=== PATIENT | male | born 1960 | race Caucasian/White ===

== ENCOUNTER → 2017-11-08 09:35 | Outpatient (CLI) | payer BC, SELFPAY ==
[2017-11-08 11:06] LABS: Alanine Aminotransferase 81 U/L (12-78); Albumin Level 3.6 gm/dL (3.4-5.0); Albumin/Globulin Ratio 1.1 (1.1-1.8); Alkaline Phosphatase 110 U/L (46-116); Anion Gap 11.5 mEq/L (5-15); Aspartate Amino Transferase 49 U/L (15-37); Bilirubin,Total 0.6 mg/dL (0.2-1.0); Blood Urea Nitrogen 18 mg/dL (7-18); Calcium 8.6 mg/dL (8.5-10.1); Carbon Dioxide 27 mmol/L (21.0-32.0); Chloride 105 mmol/L (98-107); Chol/HDL Ratio 2.7 (1-3.5); Cholesterol 149 mg/dL (140-200); Creatinine,Serum 1.23 mg/dL (0.70-1.30); Estimated Glomerular Filt Rate > 60 ml/min (>60); GFR (African American) > 60 ML/MIN (>60); Globulin 3.4 gm/dl (1.3-3.2); Glucose 113 mg/dL (74-106); HDL Cholesterol 56 mg/dL (27-67); LDL Cholesterol 74 mg/dL (0-130); Potassium 3.5 mmoL/L (3.5-5.1); Sodium 140 mmol/L (136-145); Triglycerides 93 mg/dL (30-200); VLDL Cholesterol 19 mg/dL (0-40)
== END ==
PROVIDERS: PCP Internal Medicine Adolescent Medicine; Visit Provider Internal Medicine Adolescent Medicine
DX: E78.5 Hyperlipidemia, unspecified (principal); I10 Essential (primary) hypertension
CPT/HCPCS: 36415; 80053; 80061

== ENCOUNTER → 2018-01-29 09:53 | Outpatient (CLI) | payer BC, SELFPAY ==
[2018-01-29 10:25] LABS: Alanine Aminotransferase 42 U/L (12-78); Albumin Level 3.5 gm/dL (3.4-5.0); Albumin/Globulin Ratio 0.9 (1.1-1.8); Alkaline Phosphatase 91 U/L (46-116); Anion Gap 8.6 mEq/L (5-15); Aspartate Amino Transferase 23 U/L (15-37); Bilirubin,Total 0.8 mg/dL (0.2-1.0); Blood Urea Nitrogen 17 mg/dL (7-18); Calcium 9.1 mg/dL (8.5-10.1); Carbon Dioxide 34 mmol/L (21.0-32.0); Chloride 101 mmol/L (98-107); Chol/HDL Ratio 3.3 (1-3.5); Cholesterol 171 mg/dL (140-200); Creatinine,Serum 1.08 mg/dL (0.70-1.30); Estimated Glomerular Filt Rate 71 ml/min (>60); GFR (African American) 86 ML/MIN (>60); Globulin 4.1 gm/dl (1.3-3.2); Glucose 117 mg/dL (74-106); HDL Cholesterol 52 mg/dL (27-67); LDL Cholesterol 84 mg/dL (0-130); Potassium 3.6 mmoL/L (3.5-5.1); Sodium 140 mmol/L (136-145); Total Protein,Serum 7.6 gm/dL (6.4-8.2); Triglycerides 176 mg/dL (30-200); VLDL Cholesterol 35 mg/dL (0-40)
== END ==
PROVIDERS: Visit Provider Internal Medicine Adolescent Medicine
DX: E78.5 Hyperlipidemia, unspecified (principal); I10 Essential (primary) hypertension
CPT/HCPCS: 36415; 80053; 80061

== ENCOUNTER 2018-08-02 11:57 | Observation (INO) ==
[2018-08-02 12:18] LABS: Basophils # 0.1 K/mm3 (0-0.2); Basophils % 0.5 % (0.1-2.0); Eosinophils # 0.1 K/mm3 (0.0-0.4); Hematocrit 42.1 % (42.0-52.0); Lymphocytes # 1.2 K/mm3 (0.7-4.5); Lymphocytes % 10.3 K/mm3 (10-50); Mean Corpuscular HGB Conc 33.2 g/dL (31.8-35.4); Mean Corpuscular Hemoglobin 29.5 pg (27.0-31.2); Mean Corpuscular Volume 88.6 fl (80-94); Mean Platelet Volume 7.1 fl (7.4-10.4); Monocytes # 0.7 K/mm3 (0.1-1.0); Monocytes % 5.7 % (1.7-9.3); Neutrophils # 9.6 K/mm3 (1.8-7.8); Neutrophils % 82.6 % (37.0-80.0); Platelet Count 589 K/mm3 (142-424); Red Blood Count 4.75 M/mm3 (4.60-6.20); Red Cell Distribution Width 12.1 % (11.5-17.5); White Blood Count 11.6 K/mm3 (4.8-10.8)
[2018-08-02 12:57] LABS: Alanine Aminotransferase 106 U/L (12-78); Albumin Level 2.6 gm/dL (3.4-5.0); Albumin/Globulin Ratio 0.5 (1.1-1.8); Alkaline Phosphatase 315 U/L (46-116); Anion Gap 14.5 mEq/L (5-15); Aspartate Amino Transferase 86 U/L (15-37); Blood Urea Nitrogen 18 mg/dL (7-18); Calcium 8.9 mg/dL (8.5-10.1); Carbon Dioxide 32 mmol/L (21.0-32.0); Chloride 92 mmol/L (98-107); Globulin 5.5 gm/dl (1.3-3.2); Glucose 138 mg/dL (74-106); Sodium 136 mmol/L (136-145); Total Protein,Serum 8.1 gm/dL (6.4-8.2)
[2018-08-02 13:16] LABS: Potassium 2.5 mmoL/L (3.5-5.1)
--- NOTE | 2018-08-02 14:45 | History & Physical Report ---
*Admission Date: 08/02/18 *Chief complaint: vomiting, weakness *History of present illness: 57 year old male with a history of APRIL, hyperlipidemia and HTN presented to PCP office with a two week history of vomiting and weakness. Patient reports at onset of illness he had profuse vomiting x 24 hours. States symptoms improved for a couple days, then he became weak and nauseated again. He went to the ED on 07/26 and treated for hypokalemia and gastroenteritis. Review of ED records reviewed transaminitis (AST 93, ALT 202, Total Bili 2.5), dehydration with BUN/creatinine 20/1.5, hypokalemia at 2.5 and leukocytosis with WBC 16.9. CT abdomen/pelvis showed distended gallbladder and a 12 mm nonspecific isodensity in the hepatic dome. Today, in PCP office he reports persistent nausea with occasional vomiting, weakness and dizziness. No diarrhea. No abdominal pain. Subjective temps have resolved. No cough, cold or congestion. Repeat labs showed persistent hypokalemia at 2.5, creatinine 1.51 and improving transaminitis (AST 86, ALT 106, Total Bili 2). Patient has history of ETOH abuse, although reports only social use at this time. No h/o IV drug use. Gallbladder/liver ultrasound was obtained. Patient was admitted for potassium replacement, IV hydration and further evaluation. [facility] History I have reviewed the patient's past medical history: Yes Medical History: Reports:: Anxiety, Hyperlipidemia, Hypertension - *Social History Alcohol Intake: current Alcohol Intake Frequency:: holidays/special occasions only Review of Systems - Review of Systems Review of systems:: pertinent systems reviewed and negative unless documented below - Constitutional Reports fatigue, Reports malaise, Reports weakness - *Gastrointestinal Reports nausea, Reports vomiting Meds Allergies Allergy/AdvReac Type Severity Reaction Status Date / Time No Known Allergies Allergy Verified 07/26/18 20:19 Exam Vital signs and Labs for Last 24 Hours: Laboratory Results - last 24 hr 08/02/18 12:01: APTT 26.9 08/02/18 12:01: Sodium 136, Potassium 2.5 L*, Chloride 92 L, Carbon Dioxide 32, Anion Gap 14.5, BUN 18, Creatinine 1.51 H, Estimated GFR 48 L, Est GFR ( Amer) 58 L, Glucose 138 H, Calcium 8.9, Total Bilirubin 2.0 H, AST 86 H, ALT 106 H, Alkaline Phosphatase 315 H, Total Protein 8.1, Albumin 2.6 L, Globulin 5.5 H, Albumin/Globulin Ratio 0.5 L 08/02/18 12:01: WBC 11.6 H, RBC 4.75, Hgb 14.0 L, Hct 42.1, MCV 88.6, MCH 29.5, MCHC 33.2, RDW 12.1, Plt Count 589 H, MPV 7.1 L, Neut % (Auto) 82.6 H, Lymph % (Auto) 10.3, [place] % (Auto) 5.7, Eos % (Auto) 1.0, Baso % (Auto) 0.5, Neut # (Auto) 9.6 H, Lymph # (Auto) 1.2, [place] # (Auto) 0.7, Eos # (Auto) 0.1, Baso # (Auto) 0.1 Narrative: Alert and oriented x3. Rate and rhythm regular. Sclera icterus. Mild jaundice of skin, warm, dry. Lung sounds clear and equal. Abdomen protuberant but soft, normoactive bowel sounds. No LE edema. Neuro exam unremarkable. ENT unremarkable. Assessment and Plan (1) Transaminitis Current visit: Yes Status: Acute Category: Medical Code(s): R74.0 - Nonspecific elevation of levels of transaminase and lactic acid dehydrogenase [LDH] (2) Nausea and vomiting Current visit: Yes Status: Acute Category: Medical Code(s): R11.2 - Nausea with vomiting, unspecified (3) Dehydration Current visit: Yes Status: Acute Category: Medical Code(s): E86.0 - Dehydration (4) Hypokalemia Current visit: No Status: Acute Category: Medical Code(s): E87.6 - Hypokalemia (5) Hepatic lesion Current visit: Yes Status: Acute Category: Medical Code(s): K76.9 - Liver disease, unspecified - Assessment and plan all Dx Assessment and Plan for all problems:: Most likely related to recent viral illness. GB US pending. Denies high risk behaviors. Hepatitis panel is pending. IV and oral potassium replacement. IVF's for hydration. Clear liquid diet. Will treat nausea and repeat labs in the am.
[2018-08-03 06:41] LABS: Basophils # 0.1 K/mm3 (0-0.2); Basophils % 0.5 % (0.1-2.0); Eosinophils % 0.5 % (0.1-12.0); Hematocrit 32.7 % (42.0-52.0); Lymphocytes % 11.1 K/mm3 (10-50); Mean Corpuscular HGB Conc 32.8 g/dL (31.8-35.4); Mean Corpuscular Hemoglobin 29.1 pg (27.0-31.2); Mean Corpuscular Volume 88.6 fl (80-94); Monocytes # 0.6 K/mm3 (0.1-1.0); Monocytes % 7.2 % (1.7-9.3); Neutrophils # 7.3 K/mm3 (1.8-7.8); Neutrophils % 80.7 % (37.0-80.0); Platelet Count 517 K/mm3 (142-424); Red Blood Count 3.69 M/mm3 (4.60-6.20); Red Cell Distribution Width 12.2 % (11.5-17.5)
[2018-08-03 06:56] LABS: Albumin Level 1.8 gm/dL (3.4-5.0); Albumin/Globulin Ratio 0.4 (1.1-1.8); Anion Gap 7.3 mEq/L (5-15); Bilirubin,Total 1.3 mg/dL (0.2-1.0); Calcium 8.1 mg/dL (8.5-10.1); Total Protein,Serum 6.8 gm/dL (6.4-8.2)
[2018-08-03 07:06] LABS: Potassium 2.3 mmoL/L (3.5-5.1)
[2018-08-03 07:07] LABS: Hemoglobin 10.8 g/dL (14.1-18.0)
--- NOTE | 2018-08-03 07:31 | Pharmacy Consult Notes ---
[facility] Pharmacy VTE Monitoring - Patient Demographics Admission date: 08/03/18 Report Date: 08/03/18 Time: 07:30 Allergies/Adverse Reactions: Patient Allergies No Known Allergies Allergy (Verified 07/26/18 20:19) Height: 1.78 m Weight: 106.254 kg Patient Problems: Current Active Problems Transaminitis (Acute) Nausea and vomiting (Acute) Dehydration (Acute) Hepatic lesion (Acute) - VTE Risk Labs: VTE Related Lab Results Hgb 10.8 g/dL (14.1-18.0) L D 08/03/18 06:18 Hct 32.7 % (42.0-52.0) L 08/03/18 06:18 Plt Count 517 K/mm3 (142-424) H 08/03/18 06:18 APTT 26.9 seconds (23.6-34.0) 08/02/18 12:01 BUN 14 mg/dL (7-18) 08/03/18 06:18 Creatinine 1.38 mg/dL (0.70-1.30) H 08/03/18 06:18 Estimated Creat Clear 91 mL/min (0-300) 08/03/18 06:18 Clinical Trial Participant: No - Prophylaxis VTE Prophylaxis Ordered?: Yes Types of VTE Prophylaxis: TEDS Knee High Location of Applied Device: Bilateral Lower Extremeties
[2018-08-03 08:27] LABS: Hepatitis B Core Antibody IgM Negative (Negative); Hepatitis B Surface Antigen Negative (Negative)
--- NOTE | 2018-08-03 08:57 | Progress Note ---
Internal Medicine - PN: Subj *Date: 08/03/18 *Time: 08:15 Interval history: Patient rested well overnight. Remained hemodynamically stable. Complains of continued weakness however no longer having abdominal pain. Denies any nausea. Had one bowel movement that was soft this morning. Tolerating p.o. intake. Potassium remains low on labs this morning. Denies any fever, chills, bleeding, chest pain,'s of breath. Exam Vital signs and Labs for Last 24 Hours: Temp Pulse Resp BP Pulse Ox 98.8 F 64 18 131/61 95 08/03/18 08:00 08/03/18 08:00 08/03/18 08:00 08/03/18 08:00 08/03/18 08:00 Laboratory Results - last 24 hr 08/02/18 12:01: APTT 26.9 08/02/18 12:01: Sodium 136, Potassium 2.5 L*, Chloride 92 L, Carbon Dioxide 32, Anion Gap 14.5, BUN 18, Creatinine 1.51 H, Estimated GFR 48 L, Est GFR ( Amer) 58 L, Glucose 138 H, Calcium 8.9, Total Bilirubin 2.0 H, AST 86 H, ALT 106 H, Alkaline Phosphatase 315 H, Total Protein 8.1, Albumin 2.6 L, Globulin 5.5 H, Albumin/Globulin Ratio 0.5 L 08/02/18 12:01: WBC 11.6 H, RBC 4.75, Hgb 14.0 L, Hct 42.1, MCV 88.6, MCH 29.5, MCHC 33.2, RDW 12.1, Plt Count 589 H, MPV 7.1 L, Neut % (Auto) 82.6 H, Lymph % (Auto) 10.3, [place] % (Auto) 5.7, Eos % (Auto) 1.0, Baso % (Auto) 0.5, Neut # (Auto) 9.6 H, Lymph # (Auto) 1.2, [place] # (Auto) 0.7, Eos # (Auto) 0.1, Baso # (Auto) 0.1 08/03/18 06:18: WBC 9.0, RBC 3.69 L, Hgb 10.8 L D, Hct 32.7 L, MCV 88.6, MCH 29.1, MCHC 32.8, RDW 12.2, Plt Count 517 H, MPV 7.0 L, Neut % (Auto) 80.7 H, Lymph % (Auto) 11.1, [place] % (Auto) 7.2, Eos % (Auto) 0.5, Baso % (Auto) 0.5, Neut # (Auto) 7.3, Lymph # (Auto) 1.0, [place] # (Auto) 0.6, Eos # (Auto) 0.0, Baso # (Auto) 0.1 08/03/18 06:18: Sodium 135 L, Potassium 2.3 L*, Chloride 98, Carbon Dioxide 32, Anion Gap 7.3, BUN 14, Creatinine 1.38 H, Estimated Creat Clear 91, Estimated GFR 53 L, Est GFR ( Amer) 65, Glucose 147 H, Calcium 8.1 L, Total Bilirubin 1.3 H, AST 51 H D, ALT 70 D, Alkaline Phosphatase 214 H, Total Protein 6.8, Albumin 1.8 L D, Globulin 5.0 H, Albumin/Globulin Ratio 0.4 L 08/03/18 06:18: Magnesium 1.7 I & O for Last 24 hours: Intake & Output 07/31/18 08/01/18 08/02/18 08/03/18 23:59 23:59 23:59 23:59 Intake Total 440 / 440 600 / 600 Balance 440 / 440 600 / 600 Weight 106.254 kg 106.254 kg - *Routine HEENT Exam Head: Present: normocephalic, atraumatic Eye: Present: EOMI, PERRL ENT: Present: mucous membranes moist - *Routine Neck Exam Present: supple, full ROM. Absent: JVD - *Routine Respiratory Exam Present: CTA bilaterally. Absent: prolonged expiratory phase, rales, wheezes - *Routine Cardiovascular Exam Present: RRR, Normal S1, Normal S2. Absent: murmur - *Routine Abdominal Exam Present: soft Comments: Hyperactive bowel sounds, nontender in right or left upper quadrant - *Routine Rectal Exam Patient deferred: visual exam - *Routine Exam Patient deferred: penile exam - *Routine Extremities Exam Absent: cyanosis, clubbing, edema - *Routine Skin Exam Present: intact. Absent: cyanosis, erythema, lesions - *Routine Neurological Exam Present: alert, oriented X3, CN II-XII intact Assessment and Plan (1) Transaminitis Current visit: Yes Status: Acute Category: Medical Code(s): R74.0 - Nonspecific elevation of levels of transaminase and lactic acid dehydrogenase [LDH] (2) Nausea and vomiting Current visit: Yes Status: Acute Category: Medical Code(s): R11.2 - Nausea with vomiting, unspecified (3) Dehydration Current visit: Yes Status: Acute Category: Medical Code(s): E86.0 - Dehydration (4) Hypokalemia Current visit: No Status: Acute Category: Medical Code(s): E87.6 - Hypokalemia (5) Hepatic lesion Current visit: Yes Status: Acute Category: Medical Code(s): K76.9 - Liver disease, unspecified (6) Hypomagnesemia Current visit: Yes Status: Acute Category: Medical Code(s): E83.42 - Hypomagnesemia - Assessment and plan all Dx Assessment and Plan for all problems:: No clear etiology for patient's hepatitis/transaminitis. Differential diagnosis includes viral etiology, obstruction due to gallstone, alcohol induced, drug- induced, or secondary to gastroenteritis and dehydration. At this time enzymes appear to be improving. Patient tolerating small amounts of oral intake. Remains significantly hypokalemic. Replacing both IV and oral today along with magnesium. Hepatitis from this admission still pending. Discharge criteria: Normalizing electrolytes, tolerating oral intake, no more vo miting or diarrhea. Currently continues to require inpatient medical management, reevaluate this afternoon with labs to assess for resolution and possible discharge later today
[2018-08-03 12:38] LABS: Hepatitis C Antibody <0.1 s/co ratio (0.0-0.9)
[2018-08-03 15:19] LABS: Anion Gap 6.7 mEq/L (5-15); Calcium 8.3 mg/dL (8.5-10.1)
[2018-08-03 15:25] LABS: Potassium 2.7 mmoL/L (3.5-5.1)
--- NOTE | 2018-08-03 15:32 | Discharge Summary ---
General - General Admission date:: 08/02/18 Discharge date: 08/04/18 HPI HPI: 57 year old male with a history of APRIL, hyperlipidemia and HTN presented to PCP office with a two week history of vomiting and weakness. Patient reports at onset of illness he had profuse vomiting x 24 hours. States symptoms improved for a couple days, then he became weak and nauseated again. He went to the ED on 07/26 and treated for hypokalemia and gastroenteritis. Review of ED records reviewed transaminitis (AST 93, ALT 202, Total Bili 2.5), dehydration with BUN/creatinine 20/1.5, hypokalemia at 2.5 and leukocytosis with WBC 16.9. CT abdomen/pelvis showed distended gallbladder and a 12 mm nonspecific isodensity in the hepatic dome. Today, in PCP office he reports persistent nausea with occasional vomiting, weakness and dizziness. No diarrhea. No abdominal pain. Subjective temps have resolved. No cough, cold or congestion. Repeat labs showed persistent hypokalemia at 2.5, creatinine 1.51 and improving transaminitis (AST 86, ALT 106, Total Bili 2). Patient has history of ETOH abuse, although reports only social use at this time. No h/o IV drug use. Gallbladder/liver ultrasound was obtained. Patient was admitted for potassium replacement, IV hydration and further evaluation. Hospital Course Hospital Course: Patient was admitted because of dehydration, hypokalemia, acute kidney injury, and transaminitis. With aggressive fluid and potassium repletion as well as treatment of nausea and vomiting, patient's labs improved. Able to tolerate p.o. intake with normalization of labs by day of discharge. Patient remained hemodynamically stable, afebrile, during course of admission. Medically stable for discharge home. Instructed to follow-up within a week with his primary care for reassessment and repeat lab work. Objective Vital signs: Temp Pulse Resp BP Pulse Ox 98.8 F 64 18 131/61 95 08/03/18 08:00 08/03/18 08:00 08/03/18 08:00 08/03/18 08:00 08/03/18 08:00 - *Routine HEENT Exam Head: Present: normocephalic, atraumatic Eye: Present: EOMI, PERRL ENT: Present: mucous membranes moist - *Routine Neck Exam Present: supple, full ROM - *Routine Respiratory Exam Present: CTA bilaterally. Absent: wheezes, crackles - *Routine Cardiovascular Exam Present: RRR, Normal S1, Normal S2. Absent: murmur - *Routine Abdominal Exam Present: soft, normoactive bowel sounds. Absent: tenderness - *Routine Rectal Exam Patient deferred: visual exam - *Routine Exam Patient deferred: penile exam - *Routine Extremities Exam Absent: cyanosis, clubbing, edema - *Routine Skin Exam Present: intact. Absent: cyanosis, erythema - *Routine Neurological Exam Present: alert, oriented X3, CN II-XII intact. Absent: altered mental status Results Labs on day of discharge: Labs from last 24 hours 08/03/18 08/03/18 08/03/18 14:50 06:18 06:18 WBC RBC Hgb Hct MCV MCH MCHC RDW Plt Count MPV Neut % (Auto) Lymph % (Auto) [place] % (Auto) Eos % (Auto) Baso % (Auto) Neut # (Auto) Lymph # (Auto) [place] # (Auto) Eos # (Auto) Baso # (Auto) Sodium 138 135 L Potassium 2.7 L* 2.3 L* Chloride 100 98 Carbon Dioxide 34 H 32 Anion Gap 6.7 7.3 BUN 12 14 Creatinine 1.14 1.38 H Estimated Creat Clear 110 91 Estimated GFR 67 53 L Est GFR ( Amer) 81 D 65 Glucose 108 H D 147 H Calcium 8.3 L 8.1 L Magnesium 2.2 D 1.7 Total Bilirubin 1.3 H AST 51 H D ALT 70 D Alkaline Phosphatase 214 H Total Protein 6.8 Albumin 1.8 L D Globulin 5.0 H Albumin/Globulin Ratio 0.4 L Hepatitis A IgM Ab Hep Bs Antigen Hep B Core IgM Ab Hepatitis C Antibody 08/03/18 08/02/18 06:18 12:01 WBC 9.0 RBC 3.69 L Hgb 10.8 L D Hct 32.7 L MCV 88.6 MCH 29.1 MCHC 32.8 RDW 12.2 Plt Count 517 H MPV 7.0 L Neut % (Auto) 80.7 H Lymph % (Auto) 11.1 [place] % (Auto) 7.2 Eos % (Auto) 0.5 Baso % (Auto) 0.5 Neut # (Auto) 7.3 Lymph # (Auto) 1.0 [place] # (Auto) 0.6 Eos # (Auto) 0.0 Baso # (Auto) 0.1 Sodium Potassium Chloride Carbon Dioxide Anion Gap BUN Creatinine Estimated Creat Clear Estimated GFR Est GFR ( Amer) Glucose Calcium Magnesium Total Bilirubin AST ALT Alkaline Phosphatase Total Protein Albumin Globulin Albumin/Globulin Ratio Hepatitis A IgM Ab Negative Hep Bs Antigen Negative Hep B Core IgM Ab Negative Hepatitis C Antibody <0.1 DS: Diagnosis - Discharge Diagnosis (1) Transaminitis Status: Resolved (2) Nausea and vomiting Status: Resolved (3) Dehydration Status: Resolved (4) Hypokalemia Status: Resolved (5) Hepatic lesion Status: Chronic (6) Hypomagnesemia Status: Resolved Discharge Plan - Patient Discharge Instructions ACTIVITY: Continue current activity DIET: continue same diet Patient Instructions: DI for Hypokalemia, High-Potassium Diet - Follow up Plan Follow up with: Rhys Mireles MD [Primary Care Provider] - Disposition: Home, Self-[facility] Medications: Home Medications Medication Instructions Recorded Confirmed Type RX: Atorvastatin Calcium 40 mg PO DAILY 08/02/18 08/02/18 History [Atorvastatin 40mg Tab] RX: Citalopram Hydrobromide 20 mg PO DAILY 08/02/18 08/02/18 History [Citalopram HBr] RX: Lisinopril [Lisinopril 10mg 10 mg PO DAILY 08/02/18 08/02/18 History Tab] RX: hydroCHLOROthiazide [HCTZ 25mg 25 mg PO DAILY 08/02/18 08/02/18 History tab] Prescriptions/Medication Reconciliation: Continue RX: Lisinopril [Lisinopril 10mg Tab] 10 mg PO DAILY RX: hydroCHLOROthiazide [HCTZ 25mg tab] 25 mg PO DAILY RX: Atorvastatin Calcium [Atorvastatin 40mg Tab] 40 mg PO DAILY RX: Citalopram Hydrobromide [Citalopram HBr] 20 mg PO DAILY
[2018-08-03 16:01] LABS: INR 1.01 (0.9-1.1); Prothrombin Time 10.4 seconds (9.4-11.8)
[2018-08-04 07:11] LABS: Albumin Level 1.7 gm/dL (3.4-5.0); Albumin/Globulin Ratio 0.4 (1.1-1.8); Anion Gap 7.4 mEq/L (5-15); Bilirubin,Total 0.7 mg/dL (0.2-1.0); Globulin 4.7 gm/dl (1.3-3.2); Phosphorous 2.4 mg/dL (2.4-4.9); Potassium 3.4 mmoL/L (3.5-5.1); Total Protein,Serum 6.4 gm/dL (6.4-8.2)
== END 2018-08-04 13:18 | disposition home or self-care (01) ==
LOC: 2ND 11:57 → LAB 11:57
PROVIDERS: ADMIT Internal Medicine Adolescent Medicine; ATTEND Internal Medicine Adolescent Medicine
CPT/HCPCS: 36415; 76705; 80048; 80053; 80074; 83735; 84100; 85025; 85610; 85730; G0378

== ENCOUNTER → 2019-01-15 09:43 | Outpatient (CLI) | payer BC, SELFPAY ==
--- NOTE | 2019-01-15 09:50 | US_ITS ---
US abdomen limited History:Right upper quadrant pain with nausea and vomiting Ordering Physician:Compa Christianson MD Patient Age: 58 years Comparison:None Findings: Pancreas:Poorly demonstrated due to body habitus and overlying gas. Liver:Also poorly demonstrated due to overlying gas and patient body habitus. No focal liver lesions demonstrated however, small lesions may not be detected with this technique. No intrahepatic biliary ductal dilatation. Right Kidney:Unremarkable. Normal size and echogenicity. No hydronephrosis Gallbladder:The gallbladder is distended. Common bile duct is normal at 4 mm. No shadowing stones or pericholecystic fluid evident. IMPRESSION: Distended gallbladder. No obvious shadowing stones. Limited exam with limited evaluation of the pancreas and liver due to body habitus and overlying bowel gas. CT may provide further evaluation of liver and pancreas if clinically desired
[2019-01-15 12:56] LABS: Basophils % 0.2 % (0.1-2.0); Eosinophils % 0.2 % (0.1-12.0); Hematocrit 45.4 % (42.0-52.0); Hemoglobin 14.9 g/dL (14.1-18.0); Lymphocytes # 0.5 K/mm3 (0.7-4.5); Lymphocytes % 3.8 % (10-50); Mean Corpuscular HGB Conc 32.9 g/dL (31.8-35.4); Mean Corpuscular Hemoglobin 30.2 pg (27.0-31.2); Mean Corpuscular Volume 91.8 fl (80-94); Mean Platelet Volume 7.7 fl (7.4-10.4); Monocytes # 0.6 K/mm3 (0.1-1.0); Monocytes % 4.9 % (1.7-9.3); Neutrophils # 11.8 K/mm3 (1.8-7.8); Neutrophils % 90.9 % (37.0-80.0); Platelet Count 244 K/mm3 (142-424); Red Blood Count 4.94 M/mm3 (4.60-6.20); Red Cell Distribution Width 14.1 % (11.5-17.5); White Blood Count 12.9 K/mm3 (4.8-10.8)
[2019-01-15 13:02] LABS: MANUAL DIFFERENTIAL MANUAL DIFFERENTIAL (MANUAL DIFF)
[2019-01-15 14:10] LABS: Lymphocytes % 4 % (10-50); Monocytes % 4 % (2-9); Neutrophils % 92 % (42-76); Platelet Estimate Normal; RBC Morphology Normal; Total Cells Counted 100
[2019-01-15 20:28] LABS: Alanine Aminotransferase 409 U/L (12-78); Albumin Level 3.4 gm/dL (3.4-5.0); Albumin/Globulin Ratio 0.9 (1.1-1.8); Alkaline Phosphatase 663 U/L (46-116); Anion Gap 18.2 mEq/L (5-15); Blood Urea Nitrogen 13 mg/dL (7-18); Calcium 9.4 mg/dL (8.5-10.1); Carbon Dioxide 25 mmol/L (21.0-32.0); Chloride 101 mmol/L (98-107); Creatinine,Serum 1.02 mg/dL (0.70-1.30); Estimated Glomerular Filt Rate 76 ml/min (>60); GFR (African American) 91 ML/MIN (>60); Globulin 3.6 gm/dl (1.3-3.2); Glucose 142 mg/dL (74-106); Sodium 140 mmol/L (136-145)
[2019-01-15 20:31] LABS: Potassium 4.2 mmoL/L (3.5-5.1)
[2019-01-15 20:32] LABS: Aspartate Amino Transferase 233 U/L (15-37)
== END ==
PROVIDERS: PCP Internal Medicine Adolescent Medicine; Visit Provider Internal Medicine Adolescent Medicine
DX: R10.11 Right upper quadrant pain (principal); R11.2 Nausea with vomiting, unspecified
CPT/HCPCS: 36415; 76705; 80053; 85007; 85025

== ENCOUNTER 2019-01-16 07:45 | Inpatient (IN) ==
[2019-01-16 09:50] LABS: Basophils % 0.4 % (0.1-2.0); Eosinophils # 0.1 K/mm3 (0.0-0.4); Eosinophils % 2.2 % (0.1-12.0); Hematocrit 45.6 % (42.0-52.0); Hemoglobin 15.1 g/dL (14.1-18.0); Lymphocytes # 0.9 K/mm3 (0.7-4.5); Lymphocytes % 14.1 % (10-50); Mean Corpuscular HGB Conc 33.2 g/dL (31.8-35.4); Mean Corpuscular Hemoglobin 30.7 pg (27.0-31.2); Mean Corpuscular Volume 92.4 fl (80-94); Mean Platelet Volume 7.1 fl (7.4-10.4); Monocytes # 0.4 K/mm3 (0.1-1.0); Monocytes % 6.5 % (1.7-9.3); Neutrophils # 4.9 K/mm3 (1.8-7.8); Neutrophils % 76.6 % (37.0-80.0); Platelet Count 266 K/mm3 (142-424); Red Blood Count 4.93 M/mm3 (4.60-6.20); Red Cell Distribution Width 14.2 % (11.5-17.5); White Blood Count 6.4 K/mm3 (4.8-10.8)
--- NOTE | 2019-01-16 10:19 | Pharmacy Consult Notes ---
[facility] Pharmacy VTE Monitoring - Patient Demographics Admission date: 01/16/19 Report Date: 01/16/19 Time: 10:18 Allergies/Adverse Reactions: Patient Allergies No Known Allergies Allergy (Verified 07/26/18 20:19) Height: 1.78 m Weight: 104.44 kg - VTE Risk Labs: VTE Related Lab Results Hgb 15.1 g/dL (14.1-18.0) 01/16/19 09:40 Hct 45.6 % (42.0-52.0) 01/16/19 09:40 Plt Count 266 K/mm3 (142-424) 01/16/19 09:40 Was VTE Risk Assessment Performed: Yes VTE Score: 2 VTE Risk Level: Low Risk Clinical Trial Participant: No - Prophylaxis VTE Prophylaxis Ordered?: Yes Types of VTE Prophylaxis: TEDS Knee High
[2019-01-16 10:23] LABS: Albumin Level 3.1 gm/dL (3.4-5.0); Albumin/Globulin Ratio 0.7 (1.1-1.8); Anion Gap 13.1 mEq/L (5-15); Bilirubin,Total 11.8 mg/dL (0.2-1.0); Calcium 9.2 mg/dL (8.5-10.1); Globulin 4.4 gm/dl (1.3-3.2); Potassium 3.1 mmoL/L (3.5-5.1); Total Protein,Serum 7.5 gm/dL (6.4-8.2)
--- NOTE | 2019-01-16 10:55 | History & Physical Report ---
*Admission Date: 01/16/19 *Chief complaint: Right upper quadrant pain/jaundice/hyperbilirubinemia *History of present illness: 58-year-old white male with history of hypertension and hyperlipidemia who had significant right upper quadrant pain yesterday with associated nausea, vomiting and diaphoresis. Was evaluated in the office, noted to have positive right upper quadrant tenderness on exam, ultrasonography was ordered which showed gallbladder distention with questionable thickened wall, and labs were ordered which returned at this morning showing bilirubin of 12 with elevated transaminases. It was decided to admit to hospital for observation, CT scan of abdomen and pelvis, repeat labs and surgical consultation. [facility] History I have reviewed the patient's past medical history: Yes Medical History: Reports:: Anxiety, Hyperlipidemia, Hypertension Denies:: Cancer, Diabetes Mellitus Type 1, Diabetes Mellitus Type 2, MRSA *Have you ever received a pneumonia vaccine?: No *Have you received a flu vaccine this season?: No Laterality Cases: Bilateral: Tonsillectomy Amputation: No Fractures: No - *Social History Educational Level: Completed High School Smoking Status: Never smoker Alcohol Intake: never Alcohol Intake Frequency:: a few times a month *Occupational Status:: employed Housing: house Household Members: spouse *Travel in the last 8 weeks: None - Psychiatric History Expresses thoughts of harming self/others: None Suicide Plan Description: No Plan Pschychiatric History:: Reports:: Anxiety Family Hx:: No significant family history Review of Systems - Review of Systems Review of systems:: pertinent systems reviewed and negative unless documented below - Constitutional Denies anorexia, Denies body ache(s), Denies fever(s) - Eyes Denies blind spots, Denies blurry vision, Denies change in vision - ENT Denies abnormal hearing, Denies bleeding gums - *Cardiovascular Denies chest pain, Denies chest pain at rest - *Respiratory Denies change in phlegm color, Denies chest congestion, Denies cough - *Gastrointestinal Reports abdominal pain, Reports cramping, Denies belching, Denies bloating, Denies coffee ground vomit, Denies loose stools, Denies black, tarry stools - *Genitourinary Denies difficulty urinating - *Musculoskeletal Denies abnormal walking, Denies joint pain, Denies decreased muscle mass - Endocrine Denies cold intolerance, Denies excessive sweating Meds Home Medications Medication Instructions Recorded Confirmed Type Citalopram Hydrobromide 20 mg PO DAILY 08/02/18 01/16/19 History [Citalopram HBr] Atorvastatin Calcium [Lipitor 40mg 40 mg PO HS 01/16/19 01/16/19 History Tablet] Bisoprolol Fumarate [Bisoprolol 10 mg PO DAILY 01/16/19 01/16/19 History 10mg Tablet] Allergies Allergy/AdvReac Type Severity Reaction Status Date / Time No Known Allergies Allergy Verified 07/26/18 20:19 Exam Vital signs and Labs for Last 24 Hours: Temp Pulse Resp BP Pulse Ox 97.4 F L 63 18 147/83 H 97 01/16/19 09:21 01/16/19 09:21 01/16/19 09:21 01/16/19 09:21 01/16/19 09:21 Laboratory Results - last 24 hr 01/16/19 09:40: WBC 6.4 D, RBC 4.93, Hgb 15.1, Hct 45.6, MCV 92.4, MCH 30.7, MCHC 33.2, RDW 14.2, Plt Count 266, MPV 7.1 L, Neut % (Auto) 76.6, Lymph % (Auto) 14.1, [place] % (Auto) 6.5, Eos % (Auto) 2.2, Baso % (Auto) 0.4, Neut # (Auto) 4.9, Lymph # (Auto) 0.9, [place] # (Auto) 0.4, Eos # (Auto) 0.1, Baso # (Auto) 0.0 I & O for Last 24 hours: Intake & Output 01/13/19 01/14/19 01/15/19 01/16/19 11:59 11:59 11:59 11:59 Weight 230 lb 4 oz Narrative: Patient is alert, oriented, minimally jaundiced with mild scleral icterus. Lungs are clear, heart rate regular. Abdomen is soft, does have tenderness in the right upper quadrant but equivocal Harrell sign. No rebound or guarding. No stigmata of liver disease. No edema, clubbing or cyanosis. Neurologic exam intact. Assessment and Plan (1) Elevated LFTs Current visit: No Status: Acute Category: Medical Code(s): R94.5 - Abnormal results of liver function studies Possible obstructive disease versus inflammatory gallbladder disease. Check CT scan. Repeated labs ordered. Surgical intervention versus ERCP?
--- NOTE | 2019-01-16 17:09 | Operative Note ---
Date of procedure: 01/16/19 Pre-op Diagnosis:: Biliary pancreatitis Post-op Diagnosis:: Same Procedure performed:: Laparoscopic cholecystectomy with intraoperative cholangiogram Surgeon:: Enrique He MD CIGAR HEAD HOLER:: Jairon Laguerre Anesthesia: GETA Estimated blood loss (mL): 30 Clinical Note:: Patient is a healthy 58-year-old white male. He presented with acute abdominal pain. He was found to have evidence of pancreatitis by imaging and laboratory studies. He was admitted for inpatient management and surgical consultation. Patient underwent gallbladder ultrasound which revealed gallstones. He was managed medically for his pancreatitis and had some improvement in his symptoms. Laboratory studies slowly improved. Plan was made for early interval cholecystectomy to limited source of pancreatitis since his pancreatitis was improving. Operative findings:: He had a thickened inflamed gallbladder. There was significant inflammatory response around the afshan hepatus and fibrosis. There was concern for possible stone in the cystic duct based on operative findings by cholangiogram did not reveal any stone or filling defect. He did have a incidental hernia at the umbilical area noted intraoperatively as the gallbladder was being removed. There was some bilious fluid around the liver. Operative note:: Consent was obtained and patient was taken to the operating room. He was given preoperative intravenous antibiotics. In the operating room he was placed in the supine position and general anesthesia was induced via endotracheal tube. Abdomen was prepped and draped in the standard surgical fashion. Subumbilical skin incision was made and while performing abdominal wall lift Veress needle was inserted. CO2 pneumoperitoneum was achieved to 15 mmHg. A 10 mm trocar was inserted at the umbilicus. Intraperitoneal contents were visualized. He was positioned in reverse Trendelenburg left side down. A couple of 5 mm trochars were inserted in the right upper abdomen and 10 mm trocar was inserted in the epigastrium. There is some bilious stained fluid around the liver and this was suctioned free. Liver was elevated and the gallbladder was identified. Dissection was carried out at the neck of the gallbladder bluntly incising the visceral peritoneum. There was an intense acute and chronic inflammatory response around the afshan hepatis and neck of the gallbladder. Prolonged dissection was carried out and it was initially difficult to identify the cystic duct as the neck of the gallbladder slowly tapered into the cystic duct. With prolonged careful dissection was ultimately isolated. It was clipped proximal to the gallbladder. There was concern for possible stone within the cystic duct given the operative appearance and consistency of the tissues.
--- NOTE | 2019-01-16 17:50 | Consult Report ---
*Admission Date: 01/16/19 *Chief complaint: Abdominal pain *History of present illness: Patient is a 58-year-old white male who is seen in consultation from Dr. Rhys Mireles for abdominal pain and abnormal liver function test. Patient states that he has had some symptoms intermittently with "attacks" for about 6 months. He describes onset of upper abdominal and right upper quadrant pain with significant nausea and vomiting. He had presented yesterday with these symptoms and was found to have right upper quadrant tenderness. He underwent gallbladder ultrasound which revealed some gallbladder distention but no stones. Patient was found to have significant derangement of liver function tests and was admitted for inpatient management and surgical consultation. At this point he feels somewhat better. Review of Systems - Constitutional Denies anorexia - Eyes Denies loss of vision - ENT Denies abnormal hearing - *Cardiovascular Denies chest pain - *Respiratory Denies change in phlegm color - *Gastrointestinal Reports abdominal pain, Reports vomiting - *Musculoskeletal Denies abnormal walking - *Neurologic Denies abnormal walking, Denies abnormal hearing [facility] History Medical History: Reports:: Anxiety, Hyperlipidemia, Hypertension Denies:: Cancer, Diabetes Mellitus Type 1, Diabetes Mellitus Type 2, MRSA *Have you ever received a pneumonia vaccine?: No *Have you received a flu vaccine this season?: No Laterality Cases: Bilateral: Tonsillectomy Amputation: No Fractures: No - *Social History Educational Level: Completed High School Smoking Status: Never smoker Alcohol Intake: never Alcohol Intake Frequency:: a few times a month *Occupational Status:: employed Housing: house Household Members: spouse *Travel in the last 8 weeks: None - Psychiatric History Expresses thoughts of harming self/others: None Suicide Plan Description: No Plan Pschychiatric History:: Reports:: Anxiety Family Hx:: No significant family history Meds Home Medications Medication Instructions Recorded Confirmed Type Citalopram Hydrobromide 20 mg PO DAILY 08/02/18 01/16/19 History [Citalopram HBr] Atorvastatin Calcium [Lipitor 40mg 40 mg PO HS 01/16/19 01/16/19 History Tablet] Bisoprolol Fumarate [Bisoprolol 10 mg PO DAILY 01/16/19 01/16/19 History 10mg Tablet] Allergies Allergy/AdvReac Type Severity Reaction Status Date / Time No Known Allergies Allergy Verified 07/26/18 20:19 Exam Vital signs and Labs for Last 24 Hours: Temp Pulse Resp BP Pulse Ox 98.2 F 57 L 18 183/90 H 96 01/16/19 16:00 01/16/19 16:00 01/16/19 16:00 01/16/19 16:00 01/16/19 16:00 Laboratory Results - last 24 hr 01/16/19 09:40: WBC 6.4 D, RBC 4.93, Hgb 15.1, Hct 45.6, MCV 92.4, MCH 30.7, MCHC 33.2, RDW 14.2, Plt Count 266, MPV 7.1 L, Neut % (Auto) 76.6, Lymph % (Auto) 14.1, [place] % (Auto) 6.5, Eos % (Auto) 2.2, Baso % (Auto) 0.4, Neut # (Auto) 4.9, Lymph # (Auto) 0.9, [place] # (Auto) 0.4, Eos # (Auto) 0.1, Baso # (Auto) 0.0 01/16/19 09:40: Sodium 140, Potassium 3.1 L D, Chloride 103, Carbon Dioxide 27, Anion Gap 13.1, BUN 14, Creatinine 0.98, Estimated Creat Clear 124, Estimated GFR 79, Est GFR ( Amer) 96, Glucose 134 H, Calcium 9.2, Total Bilirubin 11.8 H, AST 165 H D, ALT 329 H*, Alkaline Phosphatase 595 H, Total Protein 7.5, Albumin 3.1 L, Globulin 4.4 H, Albumin/Globulin Ratio 0.7 L I & O for Last 24 hours: Intake & Output 01/14/19 01/15/19 01/16/19 01/17/19 11:59 11:59 11:59 11:59 Intake Total 0 / 0 Balance 0 / 0 Weight 230 lb 4 oz - Constitutional no acute distress - *Routine HEENT Exam Head: Present: normocephalic Eye: Present: EOMI, PERRL ENT: Present: mucous membranes moist Comments: He has mild scleral icterus - *Routine Neck Exam Present: supple. Absent: lymphadenopathy - *Routine Respiratory Exam Present: CTA bilaterally - *Routine Cardiovascular Exam Present: RRR - *Routine Abdominal Exam Present: soft, normoactive bowel sounds. Absent: tenderness - *Routine Extremities Exam Absent: cyanosis, clubbing, edema - *Routine Skin Exam Present: warm, jaundice. Absent: rash Comments: Visible jaundice of the trunk - *Routine Neurological Exam Present: alert, oriented X3 - Detailed Eye Exam Eyelids: Left normal inspection Results - Labs 01/16/19 09:40 01/16/19 09:40 Laboratory Results - last 24 hr 01/16/19 09:40: WBC 6.4 D, RBC 4.93, Hgb 15.1, Hct 45.6, MCV 92.4, MCH 30.7, MCHC 33.2, RDW 14.2, Plt Count 266, MPV 7.1 L, Neut % (Auto) 76.6, Lymph % (Auto) 14.1, [place] % (Auto) 6.5, Eos % (Auto) 2.2, Baso % (Auto) 0.4, Neut # (Au to) 4.9, Lymph # (Auto) 0.9, [place] # (Auto) 0.4, Eos # (Auto) 0.1, Baso # (Auto) 0.0 01/16/19 09:40: Sodium 140, Potassium 3.1 L D, Chloride 103, Carbon Dioxide 27, Anion Gap 13.1, BUN 14, Creatinine 0.98, Estimated Creat Clear 124, Estimated GFR 79, Est GFR ( Amer) 96, Glucose 134 H, Calcium 9.2, Total Bilirubin 11.8 H, AST 165 H D, ALT 329 H*, Alkaline Phosphatase 595 H, Total Protein 7.5, Albumin 3.1 L, Globulin 4.4 H, Albumin/Globulin Ratio 0.7 L Assessment and Plan (1) Elevated LFTs Current visit: No Status: Acute Category: Medical Code(s): R94.5 - Abnormal results of liver function studies - Assessment and plan all Dx Assessment and Plan for all problems:: Patient's laboratory studies are more consistent with biliary or primary liver pathology. No evidence suggestive of any need for cholecystectomy at this time. I agree with CT scan. Check hepatitis serology. Recommend gastroenterology evaluation.
[2019-01-17 07:31] LABS: INR 0.91 (0.9-1.1); Prothrombin Time 9.4 seconds (9.4-11.8)
[2019-01-17 07:38] LABS: Basophils % 0.6 % (0.1-2.0); Eosinophils # 0.2 K/mm3 (0.0-0.4); Eosinophils % 3.2 % (0.1-12.0); Lymphocytes # 0.9 K/mm3 (0.7-4.5); Lymphocytes % 15.8 % (10-50); Mean Corpuscular HGB Conc 32.2 g/dL (31.8-35.4); Mean Corpuscular Hemoglobin 30.2 pg (27.0-31.2); Mean Corpuscular Volume 93.7 fl (80-94); Mean Platelet Volume 7.1 fl (7.4-10.4); Monocytes # 0.3 K/mm3 (0.1-1.0); Monocytes % 5.8 % (1.7-9.3); Neutrophils % 74.6 % (37.0-80.0); Platelet Count 258 K/mm3 (142-424); Red Blood Count 4.48 M/mm3 (4.60-6.20); Red Cell Distribution Width 14.3 % (11.5-17.5); White Blood Count 5.3 K/mm3 (4.8-10.8)
[2019-01-17 07:53] LABS: Albumin Level 2.7 gm/dL (3.4-5.0); Albumin/Globulin Ratio 0.6 (1.1-1.8); Anion Gap 12.4 mEq/L (5-15); Bilirubin,Total 9.1 mg/dL (0.2-1.0); Calcium 9.1 mg/dL (8.5-10.1); Globulin 4.3 gm/dl (1.3-3.2); Potassium 3.4 mmoL/L (3.5-5.1)
[2019-01-17 07:57] LABS: Hemoglobin 13.6 g/dL (14.1-18.0)
--- NOTE | 2019-01-17 09:05 | Progress Note ---
<Katlin Estrada - Last Filed: 01/17/19 08:55> Internal Medicine - PN: Subj *Date: 01/17/19 *Time: 08:00 Interval history: Patient states feels "iffy" this morning. He has had significant nausea, no vomiting. Onset of diarrhea this morning. Denies any blood of mucous in stool. Alert and oriented x3. Rate and rhythm regular. No LE edema. + jaundice, Abdomen, distended but soft, RUQ/LUQ tenderness, Lung sounds clear and equal Exam Vital signs and Labs for Last 24 Hours: Temp Pulse Resp BP Pulse Ox 98.6 F 72 18 165/83 H 100 01/17/19 08:00 01/17/19 08:00 01/17/19 08:00 01/17/19 08:00 01/17/19 08:00 Laboratory Results - last 24 hr 01/16/19 09:40: WBC 6.4 D, RBC 4.93, Hgb 15.1, Hct 45.6, MCV 92.4, MCH 30.7, MCHC 33.2, RDW 14.2, Plt Count 266, MPV 7.1 L, Neut % (Auto) 76.6, Lymph % (Auto) 14.1, [place] % (Auto) 6.5, Eos % (Auto) 2.2, Baso % (Auto) 0.4, Neut # (Auto) 4.9, Lymph # (Auto) 0.9, [place] # (Auto) 0.4, Eos # (Auto) 0.1, Baso # (Auto) 0.0 01/16/19 09:40: Sodium 140, Potassium 3.1 L D, Chloride 103, Carbon Dioxide 27, Anion Gap 13.1, BUN 14, Creatinine 0.98, Estimated Creat Clear 124, Estimated GFR 79, Est GFR ( Amer) 96, Glucose 134 H, Calcium 9.2, Total Bilirubin 11.8 H, AST 165 H D, ALT 329 H*, Alkaline Phosphatase 595 H, Total Protein 7.5, Albumin 3.1 L, Globulin 4.4 H, Albumin/Globulin Ratio 0.7 L 01/17/19 07:08: PT 9.4, INR 0.91 01/17/19 07:08: WBC 5.3, RBC 4.48 L, Hgb 13.6 L, Hct 42.0, MCV 93.7, MCH 30.2, MCHC 32.2, RDW 14.3, Plt Count 258, MPV 7.1 L, Neut % (Auto) 74.6, Lymph % (Auto) 15.8, [place] % (Auto) 5.8, Eos % (Auto) 3.2, Baso % (Auto) 0.6, Neut # (Auto) 4.0, Lymph # (Auto) 0.9, [place] # (Auto) 0.3, Eos # (Auto) 0.2, Baso # (Auto) 0.0 01/17/19 07:08: Sodium 140, Potassium 3.4 L, Chloride 101, Carbon Dioxide 30, Anion Gap 12.4, BUN 13, Creatinine 0.95, Estimated Creat Clear 128, Estimated GFR 82, Est GFR ( Amer) 99, Glucose 177 H D, Calcium 9.1, Total Bilirubin 9.1 H, AST 122 H D, ALT 261 H, Alkaline Phosphatase 508 H, Total Protein 7.0, Albumin 2.7 L D, Globulin 4.3 H, Albumin/Globulin Ratio 0.6 L I & O for Last 24 hours: Intake & Output 01/14/19 01/15/19 01/16/19 01/17/19 11:59 11:59 11:59 11:59 Intake Total 1341 / 1341 Balance 1341 / 1341 Weight 230 lb 4 oz Assessment and Plan (1) Elevated LFTs Current visit: No Status: Acute Category: Medical Code(s): R94.5 - Abnormal results of liver function studies - Assessment and plan all Dx Assessment and Plan for all problems:: Decrease diet back to full liquids for breakfast. Obtain diarrhea PCR. Zofran for nausea. CT abdomen is still pending. Minimal improvement in liver enzymes. Await surgery note for further recommendations. <Rhys Mireles - Last Filed: 01/17/19 09:50> Exam Vital signs and Labs for Last 24 Hours: Temp Pulse Resp BP Pulse Ox 98.6 F 72 18 165/83 H 100 01/17/19 08:00 01/17/19 08:00 01/17/19 08:00 01/17/19 08:00 01/17/19 08:00 Laboratory Results - last 24 hr 01/16/19 09:40: WBC 6.4 D, RBC 4.93, Hgb 15.1, Hct 45.6, MCV 92.4, MCH 30.7, MCHC 33.2, RDW 14.2, Plt Count 266, MPV 7.1 L, Neut % (Auto) 76.6, Lymph % (Auto) 14.1, [place] % (Auto) 6.5, Eos % (Auto) 2.2, Baso % (Auto) 0.4, Neut # (Auto) 4.9, Lymph # (Auto) 0.9, [place] # (Auto) 0.4, Eos # (Auto) 0.1, Baso # (Auto) 0.0 01/16/19 09:40: Sodium 140, Potassium 3.1 L D, Chloride 103, Carbon Dioxide 27, Anion Gap 13.1, BUN 14, Creatinine 0.98, Estimated Creat Clear 124, Estimated GFR 79, Est GFR ( Amer) 96, Glucose 134 H, Calcium 9.2, Total Bilirubin 11.8 H, AST 165 H D, ALT 329 H*, Alkaline Phosphatase 595 H, Total Protein 7.5, Albumin 3.1 L, Globulin 4.4 H, Albumin/Globulin Ratio 0.7 L 01/17/19 07:08: PT 9.4, INR 0.91 01/17/19 07:08: WBC 5.3, RBC 4.48 L, Hgb 13.6 L, Hct 42.0, MCV 93.7, MCH 30.2, MCHC 32.2, RDW 14.3, Plt Count 258, MPV 7.1 L, Neut % (Auto) 74.6, Lymph % (Auto) 15.8, [place] % (Auto) 5.8, Eos % (Auto) 3.2, Baso % (Auto) 0.6, Neut # (Auto) 4.0, Lymph # (Auto) 0.9, [place] # (Auto) 0.3, Eos # (Auto) 0.2, Baso # (Auto) 0.0 01/17/19 07:08: Sodium 140, Potassium 3.4 L, Chloride 101, Carbon Dioxide 30, Anion Gap 12.4, BUN 13, Creatinine 0.95, Estimated Creat Clear 128, Estimated GFR 82, Est GFR ( Amer) 99, Glucose 177 H D, Calcium 9.1, Total Bilirubin 9.1 H, AST 122 H D, ALT 261 H, Alkaline Phosphatase 508 H, Total Protein 7.0, Albumin 2.7 L D, Globulin 4.3 H, Albumin/Globulin Ratio 0.6 L I & O for Last 24 hours: Intake & Output 01/14/19 01/15/19 01/16/19 01/17/19 11:59 11:59 11:59 11:59 Intake Total 1341 / 1341 Balance 1341 / 1341 Weight 230 lb 4 oz Assessment and Plan (1) Elevated LFTs Current visit: No Status: Acute Category: Medical Code(s): R94.5 - Abnormal results of liver function studies - Assessment and plan all Dx Assessment and Plan for all problems:: Agree with above.. will add invanz for cholangitis possiblity. GI consult in am for ERCP if needed
--- NOTE | 2019-01-17 09:17 | Progress Note ---
Subjective Narrative: Patient doesn't feel well this morning with increased pain and nausea. CT scan done last night (final report pending). Exam Vital signs and Labs for Last 24 Hours: Temp Pulse Resp BP Pulse Ox 98.6 F 72 18 165/83 H 100 01/17/19 08:00 01/17/19 08:00 01/17/19 08:00 01/17/19 08:00 01/17/19 08:00 Laboratory Results - last 24 hr 01/16/19 09:40: WBC 6.4 D, RBC 4.93, Hgb 15.1, Hct 45.6, MCV 92.4, MCH 30.7, MCHC 33.2, RDW 14.2, Plt Count 266, MPV 7.1 L, Neut % (Auto) 76.6, Lymph % (Auto) 14.1, [place] % (Auto) 6.5, Eos % (Auto) 2.2, Baso % (Auto) 0.4, Neut # (Auto) 4.9, Lymph # (Auto) 0.9, [place] # (Auto) 0.4, Eos # (Auto) 0.1, Baso # (Auto) 0.0 01/16/19 09:40: Sodium 140, Potassium 3.1 L D, Chloride 103, Carbon Dioxide 27, Anion Gap 13.1, BUN 14, Creatinine 0.98, Estimated Creat Clear 124, Estimated GFR 79, Est GFR ( Amer) 96, Glucose 134 H, Calcium 9.2, Total Bilirubin 11.8 H, AST 165 H D, ALT 329 H*, Alkaline Phosphatase 595 H, Total Protein 7.5, Albumin 3.1 L, Globulin 4.4 H, Albumin/Globulin Ratio 0.7 L 01/17/19 07:08: PT 9.4, INR 0.91 01/17/19 07:08: WBC 5.3, RBC 4.48 L, Hgb 13.6 L, Hct 42.0, MCV 93.7, MCH 30.2, MCHC 32.2, RDW 14.3, Plt Count 258, MPV 7.1 L, Neut % (Auto) 74.6, Lymph % (Auto) 15.8, [place] % (Auto) 5.8, Eos % (Auto) 3.2, Baso % (Auto) 0.6, Neut # (Auto) 4.0, Lymph # (Auto) 0.9, [place] # (Auto) 0.3, Eos # (Auto) 0.2, Baso # (Auto) 0.0 01/17/19 07:08: Sodium 140, Potassium 3.4 L, Chloride 101, Carbon Dioxide 30, Anion Gap 12.4, BUN 13, Creatinine 0.95, Estimated Creat Clear 128, Estimated GFR 82, Est GFR ( Amer) 99, Glucose 177 H D, Calcium 9.1, Total Bilirubin 9.1 H, AST 122 H D, ALT 261 H, Alkaline Phosphatase 508 H, Total Protein 7.0, Albumin 2.7 L D, Globulin 4.3 H, Albumin/Globulin Ratio 0.6 L I & O for Last 24 hours: Intake & Output 01/14/19 01/15/19 01/16/19 01/17/19 11:59 11:59 11:59 11:59 Intake Total 1341 / 1341 Balance 1341 / 1341 Weight 230 lb 4 oz - *Routine Abdominal Exam Present: soft - *Routine Skin Exam Comments: Jaundiced. Progress Note: A&P (1) Elevated LFTs Status: Acute Current Visit: No Assessment and Plan for All Diagnoses:: May need IV antibiotics for prevention of potential cholangitis. Etiology of symptoms and findings unclear at this time. Recommend GI consultation. Potential need for ERCP.
[2019-01-18 08:25] LABS: Albumin Level 2.6 gm/dL (3.4-5.0); Albumin/Globulin Ratio 0.6 (1.1-1.8); Anion Gap 10.9 mEq/L (5-15); Globulin 4.1 gm/dl (1.3-3.2); Total Protein,Serum 6.7 gm/dL (6.4-8.2)
--- NOTE | 2019-01-18 08:34 | Progress Note ---
Subjective Narrative: Patient feels somewhat better. CT scan revealed findings of some biliary dilatation with possible 8 mm common bile duct stone. Exam Vital signs and Labs for Last 24 Hours: Temp Pulse Resp BP Pulse Ox 97.5 F L 59 L 18 197/75 H 92 L 01/18/19 08:00 01/18/19 08:00 01/18/19 08:00 01/18/19 08:00 01/18/19 08:00 Laboratory Results - last 24 hr 01/17/19 07:08: PT 9.4, INR 0.91 01/17/19 12:59: Stl Aeromonas (PCR) Not detected, Stl C. cayetanensis PCR Not detected, Stool Rotavirus (PCR) Not detected, Stl Adenov F 40/41 PCR Not detected, Stool Astrovirus (PCR) Not detected, Stool Campylobacter PCR Not detected, Stl C.difficile Tox PCR Not detected, Stool Cryptosporidium PCR Not detected, Stl E.coli Shiga Tox PCR Not detected, Stool E coli O157 PCR Not detected, Stl Enterotoxigenic E PCR Not detected, Stool EPEC (PCR) Not detected, Stool EAEC (PCR) Not detected, Stl E. histolytica PCR Not detected, Stool Giardia Lamblia PCR Not detected, Stool Salmonella PCR Not detected, Stool Sapovirus (PCR) Not detected, Stl P. shigelloides PCR Not detected, Stl Shigella/EIEC PCR Not detected, St Y.enterocolitica PCR Not detected, Stool Vibrio (PCR) Not detected, Stl Vibrio cholerae PCR Not detected, Stl Norovirus GI/GII PCR Not detected I & O for Last 24 hours: Intake & Output 01/15/19 01/16/19 01/17/19 01/18/19 11:59 11:59 11:59 11:59 Intake Total 1341 / 1341 1769 / 1769 Balance 1341 / 1341 1769 / 1769 Weight 230 lb 4 oz 231 lb 9 oz 231 lb 9 oz - Constitutional no acute distress - *Routine Abdominal Exam Present: soft. Absent: tenderness Progress Note: A&P (1) Elevated LFTs Status: Acute Current Visit: No Assessment and Plan for All Diagnoses:: Patient being seen by gastroenterology this morning for potential ERCP.
[2019-01-18 08:35] LABS: Potassium 3.9 mmoL/L (3.5-5.1)
--- NOTE | 2019-01-18 13:46 | Progress Note ---
Internal Medicine - PN: Subj *Date: 01/18/19 *Time: 08:00 Interval history: Overnight Mr. Gross had no acute issues. He continues to have some intermittent nausea and abdominal discomfort. Denies any fevers, chest pain, blood in stool, as of breath. Has still had some intermittent loose stools. N.p.o. at midnight as he was seen by GI today and planning for ERCP this morning. Exam Vital signs and Labs for Last 24 Hours: Temp Pulse Resp BP Pulse Ox 97.5 F L 59 L 18 197/75 H 92 L 01/18/19 08:00 01/18/19 08:00 01/18/19 08:00 01/18/19 08:00 01/18/19 08:00 Laboratory Results - last 24 hr 01/17/19 12:59: Stl Aeromonas (PCR) Not detected, Stl C. cayetanensis PCR Not detected, Stool Rotavirus (PCR) Not detected, Stl Adenov F 40/41 PCR Not detected, Stool Astrovirus (PCR) Not detected, Stool Campylobacter PCR Not detected, Stl C.difficile Tox PCR Not detected, Stool Cryptosporidium PCR Not detected, Stl E.coli Shiga Tox PCR Not detected, Stool E coli O157 PCR Not detected, Stl Enterotoxigenic E PCR Not detected, Stool EPEC (PCR) Not detected, Stool EAEC (PCR) Not detected, Stl E. histolytica PCR Not detected, Stool Giardia Lamblia PCR Not detected, Stool Salmonella PCR Not detected, Stool S apovirus (PCR) Not detected, Stl P. shigelloides PCR Not detected, Stl Shigella/EIEC PCR Not detected, St Y.enterocolitica PCR Not detected, Stool Vibrio (PCR) Not detected, Stl Vibrio cholerae PCR Not detected, Stl Norovirus GI/GII PCR Not detected 01/18/19 08:11: Sodium 141, Potassium 3.9, Chloride 104, Carbon Dioxide 30, Anion Gap 10.9, BUN 7 D, Creatinine 0.90, Estimated Creat Clear 136, Estimated GFR 87, Est GFR ( Amer) 106, Glucose 115 H, Calcium 9.0, Total Bilirubin 8.0 H, AST 110 H, ALT 231 H, Alkaline Phosphatase 467 H, Total Protein 6.7, Albumin 2.6 L, Globulin 4.1 H, Albumin/Globulin Ratio 0.6 L, Amylase 74 01/18/19 08:11: Lipase 282 I & O for Last 24 hours: Intake & Output 01/15/19 01/16/19 01/17/19 01/18/19 23:59 23:59 23:59 23:59 Intake Total 0 / 0 3110 / 3110 0 / 0 Balance 0 / 0 3110 / 3110 0 / 0 Weight 104.44 kg 105.035 kg 105.035 kg Narrative: Alert and oriented x3 Rate and rhythm regular No LE edema. + jaundice Abdomen, distended but soft, RUQ/LUQ tenderness Lung sounds clear and equal Assessment and Plan (1) Elevated LFTs Current visit: No Status: Acute Category: Medical Code(s): R94.5 - Abnormal results of liver function studies (2) Cholelithiasis Current visit: Yes Status: Acute Qualifiers: Cholelithiasis location: other site Biliary obstruction: with biliary obstruction Qualified Code(s): K80.81 - Other cholelithiasis with obstruction Category: Medical Code(s): K80.20 - Calculus of gallbladder without cholecystitis without obstruction CT of abdomen concerning for 8 mm stone in the common bile duct. Gastroenterology consulted, appreciate recommendations. Planning on ERCP today. -Further management pending results - Assessment and plan all Dx Assessment and Plan for all problems:: Mr. Gross is a 58-year-old male with transaminitis and suspected cholelithiasis. Initiated on prophylactic antibiotics. ERCP scheduled for today. Further management pending results. Anticipate continued need for inpatient admission over the next 1-2 days to advance diet and monitor for impro vement in symptoms and labs.
--- NOTE | 2019-01-18 14:06 | Progress Note ---
[facility] Anesthesia Checklist - Patient Identification Patient Identification: Arm Band, Verbal (Name & ) - Structural Data Admitted From: Home Planned Operative Procedure/s: ERCP Consent for Planned Operative Procedure(s) Verified: Yes Verified Documents: Surgical Consent, History and Physical - NPO Status Verified Time NPO: 00:00 - Chart Verification Results Verified: CBC, BMP, PT, PTT, INR - Additional verifications Anesthesia Reactions: No - Airway Assessment C-Spine Mobility Assessed: Yes TMJ Mobility Assessed: Yes Dentition: Poor Dentition (Broken teeth) - Neurological Assessment Level of Consciousness: Awake Hx Seizures: No Numbness or tingling in extremities: No - Anesthesia Plan Anesthesia Risk discussed: Yes Anesthesia Plan: Verified ASA Class: II Anesthesia Type: MAC [facility] History I have reviewed the patient's past medical history: Yes Medical History: Reports:: Hyperlipidemia, Hypertension Denies:: Cancer, Diabetes Mellitus Type 1, Diabetes Mellitus Type 2, MRSA *Have you ever received a pneumonia vaccine?: No *Have you received a flu vaccine this season?: No Other Medical History: Reports: Other (Jaundice, obesity) Laterality Cases: Bilateral: Tonsillectomy Other Surgeries: Yes: Hernia Repair Amputation: No Fractures: No - *Social History Educational Level: Completed High School Smoking Status: Never smoker Alcohol Intake: never Alcohol Intake Frequency:: a few times a month *Occupational Status:: employed Housing: house Household Members: spouse *Travel in the last 8 weeks: None - Psychiatric History Expresses thoughts of harming self/others: None Suicide Plan Description: No Plan Pschychiatric History:: Reports:: Anxiety Family Hx:: No significant family history
--- NOTE | 2019-01-18 14:07 | Procedure Note ---
[facility] Procedure Note Procedure Note:: ERCP procedure Report: Endoscopic retrograde cholangiopancreatography with biliary sphincterotomy and balloon extraction Endoscopist: Naldo Benitez II, MD Referring Physician: Rhys Mireles M.D. Date of Procedure: January 18, 2019 Equipment: Olympus 180 side viewing endoscope duodenoscope Sedation: MAC sedation Indication: Mr. Gross is a 58-year-old gentleman who is here for admission with obstructive jaundice secondary to choledocholithiasis. ERCP is performed prior to cholecystectomy. The patient states that he has had symptoms since July 2018 and these have progressively worsened. When he came to the emergency department on Monday, he had a CT scan of the abdomen. There was mildly prominent common bile duct at 9 mm. There was also evidence of a 8 mm density in the distal common bile duct consistent with a common bile duct stone. The patient does report abdominal pain in the upper abdomen with associated nausea. His labs on 01/16 revealed alkaline phosphatase 595, ALT 329 and total bilirubin 11.8. The patient has had acholic stools and dark and urine. He has noticed so me jaundice. His total bilirubin yesterday was 9.1. His white blood cell count has been normal and yesterday was 5.3. He has been seen by general surgery. Procedure: Prior to the procedure, a history and physical exam was performed, and patient's medications and allergies were reviewed. The risks, benefits and alternatives of the sedation and procedure were discussed with the patient. All questions were answered and informed consent was obtained. The patient was brought to the fluoroscopic radiology room. Patient identification and proposed procedure were verified by the physician and the nurse. The patient was placed in a swimmer's position between left lateral decubitus and prone position and the scope was passed under direct vision. Throughout the procedure, the patient's blood pressure, pulse, and oxygen saturations were monitored continuously. The ERCP was accomplished without difficulty. The patient tolerated the procedure well. Findings: The side-viewing scope was advanced directly into the upper esophagus and passed to the second portion of the duodenum. The esophagus, stomach and duodenum were grossly normal. The ampulla was well visualized. Both the pancr eatic duct and common bile duct were selectively cannulated. The pancreatogram was performed with only a little bit of contrast and the pancreatic duct in the head, neck and portion of the body was normal with a 2-3 mm pancreatic duct and no strictures or ductular ectasias. The common bile duct was selectively cannulated and there was a 10-11 mm common bile duct with a 9 mm filling defect consistent with a common bile duct stone. A generous biliary sphincterotomy was performed. Next, a 9-12 mm sweeping balloon was placed above the filling defect and the 9 mm yellow brown pigmented CBD stone was extracted from the common bile duct with extravasation of contrast and bile. 2 additional balloon sweeps yielded only a minor amount of debris. Lastly, a cholangiogram was performed with the balloon inflated in the CBD and there was no additional filling defects or stones. There was partial filling of the cystic duct and gallbladder. Impression: 1. 9 mm yellow-brown pigmented CBD stone status post biliary sphincterotomy and balloon extraction (biliary decompression) Plan: The patient can now have elective cholecystectomy. I will discuss the findings with patient and family.
[2019-01-19 05:58] LABS: Basophils % 0.6 % (0.1-2.0); Eosinophils # 0.1 K/mm3 (0.0-0.4); Eosinophils % 1.5 % (0.1-12.0); Hematocrit 39.9 % (42.0-52.0); Hemoglobin 13.2 g/dL (14.1-18.0); Lymphocytes # 1.1 K/mm3 (0.7-4.5); Mean Corpuscular Hemoglobin 30.8 pg (27.0-31.2); Mean Corpuscular Volume 93.3 fl (80-94); Mean Platelet Volume 7.1 fl (7.4-10.4); Monocytes # 0.3 K/mm3 (0.1-1.0); Neutrophils # 4.5 K/mm3 (1.8-7.8); Neutrophils % 74.9 % (37.0-80.0); Platelet Count 259 K/mm3 (142-424); Red Blood Count 4.27 M/mm3 (4.60-6.20); Red Cell Distribution Width 14.1 % (11.5-17.5); White Blood Count 6.1 K/mm3 (4.8-10.8)
[2019-01-19 06:11] LABS: Albumin Level 2.3 gm/dL (3.4-5.0); Albumin/Globulin Ratio 0.6 (1.1-1.8); Anion Gap 10.9 mEq/L (5-15); Bilirubin,Total 7.2 mg/dL (0.2-1.0); Calcium 8.7 mg/dL (8.5-10.1); Globulin 3.8 gm/dl (1.3-3.2); Potassium 3.9 mmoL/L (3.5-5.1); Total Protein,Serum 6.1 gm/dL (6.4-8.2)
--- NOTE | 2019-01-19 06:50 | Progress Note ---
Subjective Patient reports: no new complaints (He states that he had "a little bit of nausea overnight") Exam Vital signs and Labs for Last 24 Hours: Temp Pulse Resp BP Pulse Ox 98.3 F 55 L 18 142/82 H 98 01/19/19 04:00 01/19/19 04:00 01/19/19 04:00 01/19/19 04:00 01/19/19 04:00 Laboratory Results - last 24 hr 01/18/19 08:11: Sodium 141, Potassium 3.9, Chloride 104, Carbon Dioxide 30, Anion Gap 10.9, BUN 7 D, Creatinine 0.90, Estimated Creat Clear 136, Estimated GFR 87, Est GFR ( Amer) 106, Glucose 115 H, Calcium 9.0, Total Bilirubin 8.0 H, AST 110 H, ALT 231 H, Alkaline Phosphatase 467 H, Total Protein 6.7, Albumin 2.6 L, Globulin 4.1 H, Albumin/Globulin Ratio 0.6 L, Amylase 74 01/18/19 08:11: Lipase 282 01/19/19 05:50: WBC 6.1, RBC 4.27 L, Hgb 13.2 L, Hct 39.9 L, MCV 93.3, MCH 30.8, MCHC 33.0, RDW 14.1, Plt Count 259, MPV 7.1 L, Neut % (Auto) 74.9, Lymph % ( Auto) 18.0, [place] % (Auto) 5.0, Eos % (Auto) 1.5, Baso % (Auto) 0.6, Neut # (Auto) 4.5, Lymph # (Auto) 1.1, [place] # (Auto) 0.3, Eos # (Auto) 0.1, Baso # (Auto) 0.0 01/19/19 05:50: Sodium 141, Potassium 3.9, Chloride 104, Carbon Dioxide 30, Anion Gap 10.9, BUN 8, Creatinine 0.92, Estimated Creat Clear 133, Estimated GFR 85, Est GFR ( Amer) 103, Glucose 109 H, Calcium 8.7, Total Bilirubin 7.2 H, AST 89 H, ALT 184 H, Alkaline Phosphatase 407 H, Total Protein 6.1 L, Albumin 2.3 L D, Globulin 3.8 H, Albumin/Globulin Ratio 0.6 L I & O for Last 24 hours: Intake & Output 01/16/19 01/17/19 01/18/19 01/19/19 11:59 11:59 11:59 11:59 Intake Total 1341 / 1341 1769 / 1769 1744 / 1744 Balance 1341 / 1341 1769 / 1769 1744 / 1744 Weight 230 lb 4 oz 231 lb 9 oz 231 lb 9 oz 232 lb - Constitutional no acute distress - *Routine Respiratory Exam Absent: respiratory distress - *Routine Abdominal Exam Present: soft Progress Note: A&P (1) Elevated LFTs Status: Acute Current Visit: No (2) Cholelithiasis Status: Acute Assessment and plan: Elective cholecystectomy in the near future with Dr. He Likely discharge home soon with close outpatient follow-up. He will see Dr. He approximately 1 week after discharge for reevaluation and discussion of elective cholecystectomy. Current Visit: Yes (3) Choledocholithiasis Status: Acute Assessment and plan: Overall, doing well status post ERCP with clearance of his common bile duct Current Visit: Yes
--- NOTE | 2019-01-19 08:25 | Discharge Summary ---
General - General Admission date:: 01/16/19 Discharge date: 01/19/19 HPI HPI: 58-year-old white male with history of hypertension and hyperlipidemia who had significant right upper quadrant pain yesterday with associated nausea, vomiting and diaphoresis. Was evaluated in the office, noted to have positive right upper quadrant tenderness on exam, ultrasonography was ordered which showed gallbladder distention with questionable thickened wall, and labs were ordered which returned at this morning showing bilirubin of 12 with elevated transaminases. It was decided to admit to hospital for observation, CT scan of abdomen and pelvis, repeat labs and surgical consultation. Hospital Course Hospital Course: Patient was admitted. Hyperbilirubinemia and transaminase elevation were noted. Patient became somewhat jaundiced. Clinically had symptoms consistent with cholecystitis. Ultrasonography was unrevealing other than a thickened gallbladder wall and some other nonspecific findings, CT scan showed biliary ductal dilatation and evidence of debris in the common bile duct. Surgery followed, and we also consulted gastroenterology and Dr. Benitez performed ERCP on 01/18/19 with good success of removing a 9 mm common bile duct stone and a sphincterotomy.. Patient did well, this morning his labs are improving with reduced bilirubin and transaminase levels. He is able to eat a low-fat diet. Plan will be to discharge home with 5 days of Augmentin, Phenergan for nausea and close follow- up in our office to set up surgical appointment for elective outpatient cholecystectomy. Objective Vital signs: Temp Pulse Resp BP Pulse Ox 98.2 F 61 16 146/64 H 96 01/19/19 08:00 01/19/19 08:00 01/19/19 08:00 01/19/19 08:00 01/19/19 08:00 Narrative: Scleral icterus is improving. Patient is sleeping comfortably, when awakened he is alert, oriented x3. Lungs are clear in the anterior and posterior herrera. Heart rate regular. Abdomen soft, very minimal upper quadrant tenderness but vastly improved over yesterday's exam. No edema or clubbing. Neurologic exam intact. Results Labs on day of discharge: Labs from last 24 hours 01/19/19 01/19/19 01/18/19 05:50 05:50 08:11 WBC 6.1 RBC 4.27 L Hgb 13.2 L Hct 39.9 L MCV 93.3 MCH 30.8 MCHC 33.0 RDW 14.1 Plt Count 259 MPV 7.1 L Neut % (Auto) 74.9 Lymph % (Auto) 18.0 [place] % (Auto) 5.0 Eos % (Auto) 1.5 Baso % (Auto) 0.6 Neut # (Auto) 4.5 Lymph # (Auto) 1.1 [place] # (Auto) 0.3 Eos # (Auto) 0.1 Baso # (Auto) 0.0 Sodium 141 Potassium 3.9 Chloride 104 Carbon Dioxide 30 Anion Gap 10.9 BUN 8 Creatinine 0.92 Estimated Creat Clear 133 Estimated GFR 85 Est GFR ( Amer) 103 Glucose 109 H Calcium 8.7 Total Bilirubin 7.2 H AST 89 H ALT 184 H Alkaline Phosphatase 407 H Total Protein 6.1 L Albumin 2.3 L D Globulin 3.8 H Albumin/Globulin Ratio 0.6 L Amylase Lipase 282 01/18/19 08:11 WBC RBC Hgb Hct MCV MCH MCHC RDW Plt Count MPV Neut % (Auto) Lymph % (Auto) [place] % (Auto) Eos % (Auto) Baso % (Auto) Neut # (Auto) Lymph # (Auto) [place] # (Auto) Eos # (Auto) Baso # (Auto) Sodium 141 Potassium 3.9 Chloride 104 Carbon Dioxide 30 Anion Gap 10.9 BUN 7 D Creatinine 0.90 Estimated Creat Clear 136 Estimated GFR 87 Est GFR ( Amer) 106 Glucose 115 H Calcium 9.0 Total Bilirubin 8.0 H AST 110 H ALT 231 H Alkaline Phosphatase 467 H Total Protein 6.7 Albumin 2.6 L Globulin 4.1 H Albumin/Globulin Ratio 0.6 L Amylase 74 Lipase DS: Diagnosis - Discharge Diagnosis (1) Elevated LFTs Status: Resolved (2) Cholelithiasis Status: Acute (3) Choledocholithiasis Status: Acute Discharge Plan - Patient Discharge Instructions ACTIVITY: Continue current activity DIET: low fat, low cholesterol Patient Instructions: DI for Abdominal Pain-Adult, DI for Hypokalemia, DI for Bacterial Gastroenteritis -- Adult - Follow up Plan Follow up with: Enrique He MD [Staff Physician] - 1 week Compa Christianson MD [Staff Physician] - 01/22/19 12:00 pm Disposition: Home, Self-Long-Term Medications: Home Medications Medication Instructions Recorded Confirmed Type Citalopram Hydrobromide 20 mg PO DAILY 08/02/18 01/16/19 History [Citalopram HBr] Atorvastatin Calcium [Lipitor 40mg 40 mg PO HS 01/16/19 01/16/19 History Tablet] Bisoprolol Fumarate [Bisoprolol 10 mg PO DAILY 01/16/19 01/16/19 History 10mg Tablet] Amoxicillin/Potassium Clav 1 tab PO Q12H #10 tab 01/19/19 Rx [Augmentin 875-125 Tablet] Promethazine HCl [Phenergan 25mg 25 mg PO Q6HP PRN #15 tab 01/19/19 Rx tab] Prescriptions/Medication Reconciliation: New Amoxicillin/Potassium Clav [Augmentin 875-125 Tablet] 1 tab PO Q12H #10 tab Promethazine HCl [Phenergan 25mg tab] 25 mg PO Q6HP PRN #15 tab PRN Reason: Nausea And Vomiting Continue Citalopram Hydrobromide [Citalopram HBr] 20 mg PO DAILY Bisoprolol Fumarate [Bisoprolol 10mg Tablet] 10 mg PO DAILY Discontinued Atorvastatin Calcium [Lipitor 40mg Tablet] 40 mg PO HS
== END 2019-01-19 10:03 | disposition home or self-care (01) | DRG 446 ==
LOC: 2ND → OBSVTOIN 09:15
PROVIDERS: ADMIT Internal Medicine Adolescent Medicine; ATTEND Internal Medicine Adolescent Medicine
CPT/HCPCS: 36415; 74178; 74330; 80053; 82150; 83690; 85025; 85610; 87507; 93005; J1335; J2405; J3490; Q9967

== ENCOUNTER → 2019-02-18 10:27 | Outpatient (CLI) | payer BC, SELFPAY ==
[2019-02-18 10:56] LABS: Basophils # 0.1 K/mm3 (0-0.2); Basophils % 0.7 % (0.1-2.0); Eosinophils # 0.2 K/mm3 (0.0-0.4); Eosinophils % 2.6 % (0.1-12.0); Hematocrit 44.4 % (42.0-52.0); Hemoglobin 14.6 g/dL (14.1-18.0); Lymphocytes # 0.8 K/mm3 (0.7-4.5); Lymphocytes % 11.2 % (10-50); Mean Corpuscular HGB Conc 32.9 g/dL (31.8-35.4); Mean Corpuscular Hemoglobin 30.9 pg (27.0-31.2); Mean Platelet Volume 6.8 fl (7.4-10.4); Monocytes # 0.4 K/mm3 (0.1-1.0); Monocytes % 4.9 % (1.7-9.3); Neutrophils # 5.9 K/mm3 (1.8-7.8); Neutrophils % 80.6 % (37.0-80.0); Platelet Count 266 K/mm3 (142-424); Red Blood Count 4.73 M/mm3 (4.60-6.20); Red Cell Distribution Width 14.9 % (11.5-17.5); White Blood Count 7.3 K/mm3 (4.8-10.8)
[2019-02-18 13:05] LABS: Alanine Aminotransferase 143 U/L (12-78); Albumin Level 3.3 gm/dL (3.4-5.0); Albumin/Globulin Ratio 0.8 (1.1-1.8); Alkaline Phosphatase 399 U/L (46-116); Anion Gap 11.8 mEq/L (5-15); Aspartate Amino Transferase 93 U/L (15-37); Bilirubin,Total 1.4 mg/dL (0.2-1.0); Blood Urea Nitrogen 14 mg/dL (7-18); Calcium 8.8 mg/dL (8.5-10.1); Carbon Dioxide 30 mmol/L (21.0-32.0); Chloride 105 mmol/L (98-107); Creatinine,Serum 1.03 mg/dL (0.70-1.30); Estimated Glomerular Filt Rate 75 ml/min (>60); GFR (African American) 90 ML/MIN (>60); Glucose 88 mg/dL (74-106); Potassium 3.8 mmoL/L (3.5-5.1); Sodium 143 mmol/L (136-145); Total Protein,Serum 7.3 gm/dL (6.4-8.2)
== END ==
PROVIDERS: Visit Provider Surgery
DX: K80.20 Calculus of gallbladder without cholecystitis without obstruction (principal)
CPT/HCPCS: 36415; 80053; 85025

== ENCOUNTER → 2019-04-02 08:29 | Outpatient (CLI) | payer BC, SELFPAY ==
--- NOTE | 2019-04-02 08:40 | MR_ITS ---
MR abdomen wo/w con INDICATION: Upper abdominal pain, recent cholecystectomy, history of common bile duct stone ITS.REASON: abdominal pain post lap channing ORDERING PHYSICIAN: Enrique He MD PATIENT AGE: 58 years COMPARISON: 01/16/2019 TECHNIQUE: Routine multiplanar multiecho sequences are performed without and with gadolinium enhancement. 3-D MRCP images also performed. FINDINGS: The spleen, right adrenal gland, and pancreas have an unremarkable appearance. There is a 9 mm hypointensity and now posteriorly nonspecific. The left adrenal nodule which measures 15 mm. This does not show out of phase low signal intensity be classified as a simple adenoma. There are multiple small bilateral renal cysts. No hydronephrosis. There has been a cholecystectomy. No evidence of biloma or abscess. Common bile duct has an unremarkable appearance. No evidence of common duct stones. Common hepatic duct is slightly prominent at 7 mm but may be seen with postcholecystectomy changes. The intrahepatic biliary radicles are slightly ectatic. This however is nonspecific. No obstructing lesions are evident. There is mild prominence of the cystic duct which is nondilated. Pancreatic duct has an unremarkable appearance. No abnormal enhancement. IMPRESSION: 1. Unremarkable MRCP. No evidence of retained common duct stone, stricture, or common duct dilatation. Pancreatic duct has an unremarkable appearance. There is minimal ectasia of the intrahepatic biliary radicles. This however is of questionable significance as no obstructing lesions are identified 2. Indeterminate 15 mm left adrenal nodule. [address] follow-up suggested
[2019-04-02 09:05] LABS: Blood Urea Nitrogen 13 mg/dL (7-18); Creatinine,Serum 1.21 mg/dL (0.70-1.30); Estimated Glomerular Filt Rate 62 ml/min (>60); GFR (African American) 75 ML/MIN (>60)
== END ==
PROVIDERS: PCP Internal Medicine Adolescent Medicine; Visit Provider Surgery
DX: K80.50 Calculus of bile duct without cholangitis or cholecystitis without obstruction (principal); R10.9 Unspecified abdominal pain; Z90.49 Acquired absence of other specified parts of digestive tract
CPT/HCPCS: 36415; 74183; 82565; 84520; A9576

== ENCOUNTER → 2019-06-24 15:26 | Outpatient (POV) | payer BC, SELFPAY | PROVIDERS: PCP Internal Medicine Adolescent Medicine; Visit Provider Nurse Practitioner Family | DX: Z00.00 Encounter for general adult medical examination without abnormal findings (principal) ==

== ENCOUNTER → 2019-09-17 12:57 | Outpatient (CLI) | payer BC, SELFPAY ==
--- NOTE | 2019-09-17 12:59 | CT_ITS ---
PROCEDURE: CT ABDOMEN WO CON CLINICAL HISTORY: 6 mo fu per radiology,adenoma protocol Follow-up adrenal nodule COMPARISON: ABDPELWW CT abdomen pelvis wo/w con from 01/16/2019 TECHNIQUE: Axial images obtained with sagittal and coronal reformats. All CT scans at the facility use one or more dose reduction, viz: automated exposure control, ma/kV adjustment per patient size (including targeted exams where dose is matched to indication, i.e. head), or iterative reconstruction technique. FINDINGS: Scarring mild scarring in the right lung base. Pneumobilia is noted. There has been an interval cholecystectomy. The spleen, pancreas, kidneys, and right adrenal gland are unremarkable. 1.7 cm left adrenal nodule once again noted. The average internal density is -20 Hounsfield units consistent with an adenoma. This is not significantly changed. Unremarkable appendix. No acute bony anomalies. IMPRESSION: 1. No change in the 1.7 cm left adrenal adenoma. 2. Interval cholecystectomy with pneumobilia Dictated by: Ruben Arboleda MD 09/17/2019 18:01 Electronically signed by Ruben Arboleda MD in [place] 09/18/2019 05:10
== END ==
PROVIDERS: PCP Internal Medicine Adolescent Medicine; Visit Provider Surgery
DX: D35.00 Benign neoplasm of unspecified adrenal gland (principal); K80.20 Calculus of gallbladder without cholecystitis without obstruction
CPT/HCPCS: 74150

== ENCOUNTER → 2019-10-15 09:26 | Outpatient (CLI) | payer BC, SELFPAY ==
[2019-10-15 09:52] LABS: Basophils % 0.7 % (0.1-2.0); Eosinophils # 0.2 K/mm3 (0.0-0.4); Eosinophils % 3.1 % (0.1-12.0); Hematocrit 47.8 % (42.0-52.0); Hemoglobin 14.9 g/dL (14.1-18.0); Lymphocytes # 1.4 K/mm3 (0.7-4.5); Lymphocytes % 25.4 % (10-50); Mean Corpuscular HGB Conc 31.1 g/dL (31.8-35.4); Mean Corpuscular Hemoglobin 30.4 pg (27.0-31.2); Mean Corpuscular Volume 97.9 fl (80-94); Mean Platelet Volume 7.4 fl (7.4-10.4); Monocytes # 0.3 K/mm3 (0.1-1.0); Monocytes % 5.8 % (1.7-9.3); Neutrophils # 3.6 K/mm3 (1.8-7.8); Neutrophils % 64.9 % (37.0-80.0); Platelet Count 267 K/mm3 (142-424); Red Blood Count 4.88 M/mm3 (4.60-6.20); Red Cell Distribution Width 12.9 % (11.5-17.5); White Blood Count 5.6 K/mm3 (4.8-10.8)
[2019-10-15 10:56] LABS: Alanine Aminotransferase 65 U/L (12-78); Albumin Level 3.2 gm/dL (3.4-5.0); Albumin/Globulin Ratio 0.9 (1.1-1.8); Alkaline Phosphatase 200 U/L (46-116); Anion Gap 11.4 mEq/L (5-15); Aspartate Amino Transferase 47 U/L (15-37); Bilirubin,Total 1.1 mg/dL (0.2-1.0); Blood Urea Nitrogen 10 mg/dL (7-18); Calcium 8.6 mg/dL (8.5-10.1); Carbon Dioxide 31 mmol/L (21.0-32.0); Chloride 105 mmol/L (98-107); Chol/HDL Ratio 2.9 (1-3.5); Cholesterol 224 mg/dL (140-200); Creatinine,Serum 1.12 mg/dL (0.70-1.30); Estimated Glomerular Filt Rate 68 ml/min (>60); GFR (African American) 82 ML/MIN (>60); Globulin 3.5 gm/dl (1.3-3.2); Glucose 103 mg/dL (74-106); HDL Cholesterol 77 mg/dL (27-67); LDL Cholesterol 126 mg/dL (0-130); Potassium 3.4 mmoL/L (3.5-5.1); Sodium 144 mmol/L (136-145); Total Protein,Serum 6.7 gm/dL (6.4-8.2); Triglycerides 106 mg/dL (30-200); VLDL Cholesterol 21 mg/dL (0-40)
== END ==
PROVIDERS: Visit Provider Internal Medicine Adolescent Medicine
DX: I10 Essential (primary) hypertension (principal); E78.5 Hyperlipidemia, unspecified
CPT/HCPCS: 36415; 80053; 80061; 85025

== ENCOUNTER → 2020-08-19 14:13 | Outpatient (CLI) | payer OTHER, SELFPAY | PROVIDERS: PCP Internal Medicine Adolescent Medicine; Visit Provider Physician Assistant | DX: Z03.818 Encounter for observation for suspected exposure to other biological agents ruled out (principal) | CPT/HCPCS: U0003 ==

== ENCOUNTER → 2020-08-24 08:55 | Outpatient (CLI) | payer OTHER, SELFPAY ==
[2020-08-24 09:10] LABS: Basophils % 0.5 % (0.1-2.0); Eosinophils # 0.2 K/mm3 (0.0-0.4); Eosinophils % 2.4 % (0.1-12.0); Hematocrit 48.4 % (42.0-52.0); Hemoglobin 15.8 g/dL (14.1-18.0); Lymphocytes # 1.4 K/mm3 (0.7-4.5); Lymphocytes % 19.7 % (10-50); Mean Corpuscular HGB Conc 32.6 g/dL (31.8-35.4); Mean Corpuscular Hemoglobin 30.8 pg (27.0-31.2); Mean Corpuscular Volume 94.4 fl (80-94); Mean Platelet Volume 7.1 fl (7.4-10.4); Monocytes # 0.4 K/mm3 (0.1-1.0); Monocytes % 6.4 % (1.7-9.3); Neutrophils # 4.9 K/mm3 (1.8-7.8); Platelet Count 263 K/mm3 (142-424); Red Blood Count 5.13 M/mm3 (4.60-6.20); Red Cell Distribution Width 12.9 % (11.5-17.5); White Blood Count 6.8 K/mm3 (4.8-10.8)
[2020-08-24 09:39] LABS: Chloride 100 mmol/L (98-107); Potassium 4.2 mmoL/L (3.5-5.1); Sodium 139 mmol/L (136-145)
[2020-08-24 09:41] LABS: Alanine Aminotransferase 58 U/L (12-78); Aspartate Amino Transferase 50 U/L (17-59); Blood Urea Nitrogen 16 mg/dl (9-20); Estimated Glomerular Filt Rate 62 ml/min (>60); GFR (African American) 76 ML/MIN (>60)
[2020-08-24 09:42] LABS: Albumin Level 3.8 g/dl (3.5-5.0); Albumin/Globulin Ratio 1.2 (1.1-1.8); Alkaline Phosphatase 130 U/L (38-126); Anion Gap 9.2 mEq/L (5-15); Bilirubin,Total 0.9 mg/dl (0.2-1.3); Calcium 9.2 mg/dl (8.4-10.2); Carbon Dioxide 34 mmol/L (22.0-30.0); Cholesterol 219 mg/dl (140-200); Globulin 3.1 g/dL (1.3-3.2); Glucose 142 mg/dl (74-100); HDL Cholesterol 74 mg/dl (40-60); Total Protein,Serum 6.9 g/dl (6.3-8.2); Triglycerides 123 mg/dl (30-150); VLDL Cholesterol 25 mg/dL (0-40)
[2020-08-24 09:53] LABS: Direct LDL Cholesterol 110.34 mg/dL (100-129)
== END ==
PROVIDERS: Visit Provider Internal Medicine Adolescent Medicine
DX: I10 Essential (primary) hypertension (principal)
CPT/HCPCS: 36415; 80053; 80061; 85025

== ENCOUNTER → 2020-08-28 09:14 | Outpatient (CLI) | payer OTHER, SELFPAY ==
--- NOTE | 2020-08-28 09:20 | CT_ITS ---
PROCEDURE: CT ABDOMEN WO/W CON CLINICAL HISTORY: LESION OF THE ADRENAL GLAND Follow-up adrenal nodule COMPARISON: CT ABDPELWW CT abdomen pelvis wo/w con from 01/16/[address] ABDOMEN WO CON from 09/17/2019 TECHNIQUE: 75 mL Optiray 350. Exam performed without and with contrast Axial images obtained with sagittal and coronal reformats. All CT scans at the facility use one or more dose reduction, viz: automated exposure control, ma/kV adjustment per patient size (including targeted exams where dose is matched to indication, i.e. head), or iterative reconstruction technique. FINDINGS: Fibrotic change right lung base. There is a 2 x 1.7 left adrenal nodule. Average density is -18 to-30 Hounsfield units without contrast consistent with an adenoma. 60 second post enhancement density is 16 Hounsfield units and 15 minutes delayed enhancement is -3 Hounsfield units. This is or the right adrenal gland is unremarkable. No renal or ureteral calculi. Prior cholecystectomy with pneumobilia. The spleen and pancreas and kidneys have an unremarkable appearance. Unremarkable appendix. Postsurgical changes of the umbilical region. IMPRESSION: Left adrenal adenoma as described above slightly increased in size. Continued follow-up suggested. Dictated by: Ruben Arboleda MD 08/29/2020 09:15 Ruben Arboleda MD in [place] 08/29/2020 09:15
== END ==
PROVIDERS: PCP Internal Medicine Adolescent Medicine; Visit Provider Internal Medicine Adolescent Medicine
DX: E27.9 Disorder of adrenal gland, unspecified (principal)
CPT/HCPCS: 74170; Q9967

== ENCOUNTER 2020-11-06 16:35 | Emergency (ER) | payer OTHER, SELFPAY ==
[2020-11-06 17:20] VITALS: BP 148/90; PULSE 66; RESP 16; TEMP 37.4; O2SAT 98; BMI 35.9
--- NOTE | 2020-11-06 17:42 | HMH.EDUTC ---
[facility] Disposition Clinical Impression: Exposure to COVID-19 virus Disposition: Home, Self-Care Condition on Discharge: Good Instructions: DI for COVID-19 (Suspected or Confirmed ), Coronavirus Disease 2019, COVID-19: Testing and Tracing, Preventing the Spread of Coronavirus Discharge Instructions Additional Instructions: *Monitor Temp, Over the counter Motrin or Tylenol as directed/as needed Tylenol every 4 hours and Motrin every 6 hours (as long as your family doctor has told you that you can take it) for fever or pain. and straight to ER if unable to lower temp less than 101.0 after medication given Follow up IMMEDIATELY for new or worsening symptoms or no Noticeable improvement over the next 48-72 hours. 911 for difficulty breathing or swallowing You were tested for today for COVID19 your test result should be back in the next 24-48 hours, you may call to the [facility] to see if your test results are back in the next 48 hours [phone] [facility] hours are 9am-9pm You was given a handout with instructions for Self Quarantine and Self isolation for while you wait on test results and what to do if they are positive If you are positive the Health Dept will be contacting you also Referrals: Compa Christianson MD [Primary Care Provider] - As needed Forms: Work/School Release Time of Disposition: 17:42 Medical Decision Making - Marek Inquiry Pt receiving controlled substance: No Marek was queried for this patient: No Vital Signs: 11/06/20 17:20 Temperature 99.4 F Temperature Source Oral Pulse Rate [Right] 66 Respiratory Rate 16 Blood Pressure [Right Arm] 148/90 H Blood Pressure Mean [Right Arm] 109 Blood Pressure Source [Right Arm] Automatic Cuff Blood Pressure Position [Right Arm] Sitting 02 Sat by Pulse Oximetry 98 Oxygen Delivery Method Room Air Orders (Tests/Meds): ORDERS Category Date Time Status Covid-19 Nasal PCR ([facility]) Routine Lab 11/06/20 17:24 Ordered [facility] HPI - General Stated complaint: covid test Time Seen by Provider: 11/06/20 17:42 Mode of Arrival: Ambulatory Source of Information: Patient Limitations: No Limitations Description of Symptoms (Recalled from Triage Doc. by RN): pt had exposure to covid. denies any symptoms HEENT Symptoms (Recalled from RN notes): No Resp Symptoms (Recalled from RN notes): No Skin Symptoms (Recalled from RN notes): No MS Symptoms (Recalled from RN notes): No Functional Status (Recalled from RN notes): na - History of Present Illness Provider Complaint: Patient states that he was recently around someone that has since tested positive for COVID States that he is not having any symptoms but due to close contact he wanted to get tested - Related Data Home Medications Medication Instructions Recorded Confirmed Citalopram Hydrobromide 20 mg PO DAILY 08/02/18 09/23/19 [Citalopram HBr] bisoproloL fumarate [Bisoprolol 10 mg PO DAILY 01/16/19 09/23/19 10mg Tablet] methylcellulose (with sugar) oral 1 tbsp PO DAILY 09/23/19 09/23/19 powder Allergies Allergy/AdvReac Type Severity Reaction Status Date / Time No Known Allergies Allergy Verified 09/23/19 09:15 - Worker's Comp Is this a Worker's Comp case?: No [facility] History - Hepatitis A Screen Drug use history?: No High risk sexual behaviors?: No History of sexually transmitted infection?: No Currently employed?: No Childcare worker?: No Do you have indoor plumbing?: Yes Do you have electricity?: Yes Attestation statement:: This patient has been screened for Hepatitis A risk factors. I have reviewed the patient's past medical history: Yes Medical History: Reports:: Anxiety, Hyperlipidemia, Hypertension Denies:: Cancer, Diabetes Mellitus Type 1, Diabetes Mellitus Type 2, Internal Pacemaker, Lung Disease, MRSA, Seizures Other Medical History: Reports: Other. Denies: Blood Transfusion Reaction Laterality Cases: Bilateral: Tonsillectomy Other Surgeries: Yes: Cholecystectomy, Colonoscopy, Her
[2020-11-06 18:00] VITALS: BP 142/87; PULSE 74; RESP 16; TEMP 37.3; O2SAT 98
== END 2020-11-06 17:58 | disposition home or self-care (01) ==
PROVIDERS: Emergency Provider Nurse Practitioner; PCP Internal Medicine Adolescent Medicine
DX: Z20.822 Contact with and (suspected) exposure to COVID-19 (principal); F41.9 Anxiety disorder, unspecified; E78.5 Hyperlipidemia, unspecified; I10 Essential (primary) hypertension
CPT/HCPCS: 99202; G0463; U0003

== ENCOUNTER → 2021-03-11 08:33 | Outpatient (CLI) | payer OTHER, SELFPAY ==
[2021-03-11 09:00] LABS: Basophils % 0.5 % (0.1-2.0); Eosinophils # 0.2 K/mm3 (0.0-0.4); Eosinophils % 2.5 % (0.1-12.0); Hematocrit 45.2 % (42.0-52.0); Hemoglobin 15.2 g/dL (14.1-18.0); Lymphocytes # 1.1 K/mm3 (0.7-4.5); Lymphocytes % 18.2 % (10-50); Mean Corpuscular HGB Conc 33.7 g/dL (31.8-35.4); Mean Corpuscular Hemoglobin 30.7 pg (27.0-31.2); Mean Corpuscular Volume 90.9 fl (80-94); Mean Platelet Volume 7.2 fl (7.4-10.4); Monocytes # 0.4 K/mm3 (0.1-1.0); Monocytes % 5.7 % (1.7-9.3); Neutrophils # 4.4 K/mm3 (1.8-7.8); Neutrophils % 73.1 % (37.0-80.0); Platelet Count 236 K/mm3 (142-424); Red Blood Count 4.97 M/mm3 (4.60-6.20); Red Cell Distribution Width 12.8 % (11.5-17.5); White Blood Count 6.1 K/mm3 (4.8-10.8)
[2021-03-11 09:21] LABS: Alanine Aminotransferase 40 U/L (12-78); Albumin Level 3.7 g/dl (3.5-5.0); Albumin/Globulin Ratio 1.3 (1.1-1.8); Alkaline Phosphatase 104 U/L (38-126); Anion Gap 3.1 mEq/L (5-15); Aspartate Amino Transferase 45 U/L (17-59); Bilirubin,Total 0.8 mg/dl (0.2-1.3); Blood Urea Nitrogen 17 mg/dl (9-20); Calcium 9.1 mg/dl (8.4-10.2); Carbon Dioxide 36 mmol/L (22.0-30.0); Chloride 103 mmol/L (98-107); Chol/HDL Ratio 2.9 (1-3.5); Cholesterol 183 mg/dl (140-200); Estimated Glomerular Filt Rate 77 ml/min (>60); GFR (African American) 93 ML/MIN (>60); Globulin 2.9 g/dL (1.3-3.2); Glucose 116 mg/dl (74-100); HDL Cholesterol 64 mg/dl (40-60); Potassium 4.1 mmoL/L (3.5-5.1); Sodium 138 mmol/L (136-145); Total Protein,Serum 6.6 g/dl (6.3-8.2); Triglycerides 89 mg/dl (30-150); VLDL Cholesterol 18 mg/dL (0-40)
[2021-03-11 09:32] LABS: Direct LDL Cholesterol 92.19 mg/dL (100-129)
[2021-03-12 11:15] LABS: Hemoglobin A1C 5.5 % (4.0-6.0)
[2021-03-12 11:40] LABS: Thyroid Stimulating Hormone 3.84 uIU/mL (0.465-4.68)
== END ==
PROVIDERS: Internal Medicine Adolescent Medicine; Visit Provider Internal Medicine Adolescent Medicine
DX: I10 Essential (primary) hypertension (principal); R53.1 Weakness; E78.5 Hyperlipidemia, unspecified
CPT/HCPCS: 36415; 80053; 80061; 83036; 84443; 85025

== ENCOUNTER → 2021-03-26 16:23 | Outpatient (CLI) | payer OTHER, SELFPAY ==
[2021-03-26 16:52] LABS: Basophils % 0.2 % (0.1-2.0); Eosinophils # 0.2 K/mm3 (0.0-0.4); Eosinophils % 1.7 % (0.1-12.0); Hematocrit 45.6 % (42.0-52.0); Hemoglobin 14.8 g/dL (14.1-18.0); Lymphocytes # 0.5 K/mm3 (0.7-4.5); Lymphocytes % 4.9 % (10-50); Mean Corpuscular HGB Conc 32.5 g/dL (31.8-35.4); Mean Corpuscular Volume 92.3 fl (80-94); Mean Platelet Volume 6.7 fl (7.4-10.4); Monocytes # 0.3 K/mm3 (0.1-1.0); Monocytes % 2.9 % (1.7-9.3); Neutrophils # 8.9 K/mm3 (1.8-7.8); Neutrophils % 90.2 % (37.0-80.0); Platelet Count 197 K/mm3 (142-424); Red Blood Count 4.95 M/mm3 (4.60-6.20); Red Cell Distribution Width 12.8 % (11.5-17.5); White Blood Count 9.9 K/mm3 (4.8-10.8)
[2021-03-26 16:55] LABS: MANUAL DIFFERENTIAL MANUAL DIFFERENTIAL (MANUAL DIFF)
[2021-03-26 16:59] LABS: Adenovirus F 40/41, stool Not Detected (NotDetected); Astrovirus Not Detected (NotDetected); Clostridium Difficile A/B, PCR Not Detected (NotDetected); Cryptosporidium Not Detected (NotDetected); Cyclospora Cayetanesis Not Detected (NotDetected); Entamoeba histolytica Not Detected (NotDetected); Enteroaggregative E coli Not Detected (NotDetected); Enteropathogenic E coli Not Detected (NotDetected); Enterotoxigenic E coli Not Detected (NotDetected); Giardia lamblia Not Detected (NotDetected); Norovirus Not Detected (NotDetected); Plesimonas Shigalloides, PCR Not Detected (NotDetected); Rotavirus A Not Detected (NotDetected); Salmonella, PCR Not Detected (NotDetected); Sapovirus Not Detected (NotDetected); Shiga-like toxin E coli Not Detected (NotDetected); Shigella Enterovasive E coli Not Detected (NotDetected); Vibrio Cholerae Not Detected (NotDetected); Vibrio, PCR Not Detected (NotDetected); Yersinia Entercolitica, PCR Not Detected (NotDetected)
[2021-03-26 17:20] LABS: Chloride 97 mmol/L (98-107)
[2021-03-26 17:21] LABS: Potassium 3.5 mmoL/L (3.5-5.1); Sodium 135 mmol/L (136-145)
[2021-03-26 17:23] LABS: Alanine Aminotransferase 34 U/L (12-78); Aspartate Amino Transferase 44 U/L (17-59); Blood Urea Nitrogen 19 mg/dl (9-20); Estimated Glomerular Filt Rate 52 ml/min (>60); GFR (African American) 63 ML/MIN (>60)
[2021-03-26 17:24] LABS: Albumin Level 3.8 g/dl (3.5-5.0); Albumin/Globulin Ratio 1.3 (1.1-1.8); Alkaline Phosphatase 129 U/L (38-126); Anion Gap 12.5 mEq/L (5-15); Bilirubin,Total 1.2 mg/dl (0.2-1.3); Calcium 8.9 mg/dl (8.4-10.2); Carbon Dioxide 29 mmol/L (22.0-30.0); Glucose 123 mg/dl (74-100); Magnesium 1.4 mg/dl (1.6-2.3); Total Protein,Serum 6.8 g/dl (6.3-8.2)
[2021-03-26 17:41] LABS: 25-OH Vitamin D, Total 26.1 ng/mL (30-100); Lymphocytes % 10 % (10-50); Monocytes % 4 % (2-9); Neutrophils % 86 % (42-76); Platelet Estimate Normal; RBC Morphology Normal; Total Cells Counted 100
[2021-03-26 17:54] LABS: Thyroid Stimulating Hormone 2.38 uIU/mL (0.465-4.68)
[2021-03-26 18:15] LABS: Vitamin B12 304 pg/mL (239-931)
[2021-03-27 09:23] LABS: Campylobacter Detected (NotDetected)
== END ==
PROVIDERS: Visit Provider Internal Medicine Adolescent Medicine
DX: R19.7 Diarrhea, unspecified (principal); A04.5 Campylobacter enteritis; R25.1 Tremor, unspecified; R53.81 Other malaise; R53.83 Other fatigue; E55.9 Vitamin D deficiency, unspecified
CPT/HCPCS: 36415; 80053; 82306; 82607; 83735; 84443; 85007; 85025; 87507

== ENCOUNTER → 2021-03-27 11:12 | Outpatient (CLI) | payer OTHER, SELFPAY ==
[2021-03-27 11:18] LABS: Microscopic, Urine URINE MICROSCOPIC (MICROSCOPIC)
[2021-03-27 12:15] LABS: Appearance,Urine CLEAR (Clear); Bilirubin,Urine Negative (Negative); Blood, Urine Negative (Negative); Color,Urine YELLOW (Yellow); Glucose,Urine (UA) Negative (Negative); Ketones,Urine Negative (Negative); Leukocyte Esterase,Urine Negative (Negative); Nitrate,Urine Negative (Negative); Protein,Urine TRACE (Negative); Specific Gravity, Urine 1.025 (1.005-1.030); Urobilinogen,Urine 0.2 EU/dl (0.2)
== END ==
PROVIDERS: Visit Provider Internal Medicine Adolescent Medicine
DX: R53.81 Other malaise (principal)
CPT/HCPCS: 81001

== ENCOUNTER 2021-09-11 21:19 | Emergency (ER) | payer OTHER, SELFPAY ==
[2021-09-11 21:08] VITALS: BP 126/67; PULSE 67; RESP 18; TEMP 36.6; O2SAT 100; BMI 35.9
--- NOTE | 2021-09-11 21:15 | CT_ITS ---
PROCEDURE INFORMATION: Exam: CT Head Without Contrast Exam date and time: 09/11/2021 9:15 PM Age: 60 years old Clinical indication: Syncope and collapse; Additional info: Syncope possible seizure TECHNIQUE: Imaging protocol: Computed tomography of the head without contrast. Radiation optimization: All CT scans at this facility use at least one of these dose optimization techniques: automated exposure control; mA and/or kV adjustment per patient size (includes targeted exams where dose is matched to clinical indication); or iterative reconstruction. COMPARISON: No relevant prior studies available. FINDINGS: Brain: Normal. No hemorrhage. Unremarkable white matter. No mass effect. Cerebral ventricles: No ventriculomegaly. Paranasal sinuses: Visualized sinuses are unremarkable. No fluid levels. Mastoid air cells: Visualized mastoid air cells are well aerated. Vasculature: Intraranial artery density is normal. Bones/joints: Unremarkable. No acute fracture. Soft tissues: Unremarkable. IMPRESSION: No acute intracranial abnormality.
--- NOTE | 2021-09-11 21:17 | XR_ITS ---
PROCEDURE INFORMATION: Exam: XR Chest Exam date and time: 09/11/2021 9:17 PM Age: 60 years old Clinical indication: Other: Syncope possible seizure TECHNIQUE: Imaging protocol: XR of the chest. Views: 1 view. COMPARISON: CT ABDOMEN WO/W CON 08/28/2020 10:22 AM FINDINGS: Lungs: Unremarkable. No consolidation. Pleural spaces: Unremarkable. No pleural effusion. No pneumothorax. Heart/Mediastinum: Unremarkable. No cardiomegaly. Bones/joints: Unremarkable. IMPRESSION: No acute findings.
--- NOTE | 2021-09-11 21:20 | ECG_ITS ---
APPROVED REPORT Exam: Resting ECG HR:66 bpm ECG Measurements Heart Rate 66 AXES VA 156 P 39 QRSd 100 QRS 41 QT 406 T 42 QTc 425 Conclusion Normal sinus rhythm Normal ECG Electronically signed by : Rhys Mireles MD 09/12/2021 07:13:22
[2021-09-11 21:30] VITALS: BP 112/67; PULSE 67; RESP 16; O2SAT 98
[2021-09-11 21:35] LABS: Basophils # 0.1 K/mm3 (0-0.2); Basophils % 1.4 % (0.1-2.0); Eosinophils % 0.5 % (0.1-12.0); Hematocrit 46.7 % (42.0-52.0); Hemoglobin 15.4 g/dL (14.1-18.0); Lymphocytes # 0.9 K/mm3 (0.7-4.5); Lymphocytes % 21.8 % (10-50); Mean Corpuscular HGB Conc 33.1 g/dL (31.8-35.4); Mean Corpuscular Hemoglobin 31.2 pg (27.0-31.2); Mean Corpuscular Volume 94.2 fl (80-94); Mean Platelet Volume 8.1 fl (7.4-10.4); Monocytes # 0.2 K/mm3 (0.1-1.0); Monocytes % 5.3 % (1.7-9.3); Neutrophils # 2.8 K/mm3 (1.8-7.8); Platelet Count 159 K/mm3 (142-424); Red Blood Count 4.96 M/mm3 (4.60-6.20); Red Cell Distribution Width 13.1 % (11.5-17.5); White Blood Count 3.9 K/mm3 (4.8-10.8)
[2021-09-11 21:44] LABS: Alanine Aminotransferase 50 U/L (12-78); Albumin/Globulin Ratio 1.3 (1.1-1.8); Alkaline Phosphatase 166 U/L (38-126); Anion Gap 14.9 mEq/L (5-15); Aspartate Amino Transferase 62 U/L (17-59); Bilirubin,Total 0.6 mg/dl (0.2-1.3); Blood Urea Nitrogen 16 mg/dl (9-20); Calcium 8.8 mg/dl (8.4-10.2); Carbon Dioxide 26 mmol/L (22.0-30.0); Chloride 99 mmol/L (98-107); Creatinine Clearance Estimated 92 mL/min (50-200); Estimated Glomerular Filt Rate 52 ml/min (>60); GFR (African American) 63 ML/MIN (>60); Globulin 3.2 g/dL (1.3-3.2); Glucose 147 mg/dl (74-100); Sodium 137 mmol/L (136-145); Total Protein,Serum 7.2 g/dl (6.3-8.2)
[2021-09-11 21:45] LABS: Ethyl Alcohol 10 mg/dl (0-10)
[2021-09-11 21:46] LABS: Lactic Acid 2.7 mmol/L (0.7-2.1)
[2021-09-11 21:47] LABS: Potassium 2.9 mmoL/L (3.5-5.1)
[2021-09-11 21:49] LABS: C-Reactive Protein 29.3 mg/L (0-4)
[2021-09-11 21:55] VITALS: BP 117/64; PULSE 62; O2SAT 98
[2021-09-11 21:56] LABS: Troponin I 0.02 ng/ml (0.00-0.034)
[2021-09-11 21:59] LABS: Influenza A, PCR Not Detected (NotDetected); Influenza B, PCR Not Detected (NotDetected)
[2021-09-11 22:01] LABS: Procalcitonin 0.191 ng/mL (0.0-2.0)
[2021-09-11 22:02] LABS: Erythrocyte Sedimentation Rate 28 mm/hr (0-20)
[2021-09-11 22:09] LABS: Creatine Kinase 72 U/L (55-170)
[2021-09-11 22:10] LABS: Magnesium 1.6 mg/dl (1.6-2.3)
[2021-09-11 22:22] LABS: Coronavirus 19, PCR Detected (NotDetected)
[2021-09-11 23:00] VITALS: BP 113/57; PULSE 54; RESP 18; O2SAT 95
[2021-09-11 23:48] LABS: Microscopic, Urine URINE MICROSCOPIC (MICROSCOPIC)
[2021-09-11 23:51] LABS: Appearance,Urine SL CLOUDY (Clear); Blood, Urine Negative (Negative); Color,Urine DK YELLOW (Yellow); Glucose,Urine (UA) Negative (Negative); Ketones,Urine TRACE (Negative); Leukocyte Esterase,Urine Negative (Negative); Nitrate,Urine Negative (Negative); Protein,Urine TRACE (Negative); Specific Gravity, Urine >= 1.030 (1.005-1.030); Urobilinogen,Urine 0.2 EU/dl (0.2)
[2021-09-11 23:59] LABS: Bacteria,Urine 3+ /lpf; Bilirubin,Urine Negative (Negative); Mucus,Urine 3+ /lpf
[2021-09-12] VITALS: BP 122/66; PULSE 52; O2SAT 94
[2021-09-12 00:03] LABS: Barbiturates Screen,Urine Negative ng/ml (<200); Benzodiazepines Screen,Urine Negative ng/ml (<200)
[2021-09-12 00:04] LABS: Amphetamine/Metha Screen,Urine Negative ng/ml (<1000)
[2021-09-12 00:05] LABS: Cannabinoid Screen,Urine Negative ng/ml (<50); Cocaine Screen,Urine Negative ng/ml (<300)
[2021-09-12 00:06] LABS: Methadone Screen,Urine Negative ng/ml (<300); Opiate Screen,Urine Negative ng/ml (<300)
[2021-09-12 00:07] LABS: Phencyclidine Screen,Urine Negative ng/ml (<25)
--- NOTE | 2021-09-12 00:37 | HMH.EDSEIZ ---
ED Disposition Clinical Impression: Seizure-like activity, COVID-19 Disposition: Home, Self-Care Condition on Discharge: Good Instructions: DI for Seizure (Not Epilepsy/Seizure Disorder), DI for COVID-19 (Suspected or Confirmed ) Additional Instructions: fluids and see pcp for follow up Referrals: Provider,Referral, [Primary Care Provider] - - Critical Care Critical Care Time: No Attestation: On 09/11/21, the high probability of a clinically significant, sudden or life threatening deterioration of the following system(s) required my full and direct attention, intervention and personal management. The time I documented below is in addition to time spent performing reported procedures but includes the following listed in this critical care notation. Medical Decision Making - Medical Records Medical records reviewed: Yes: I reviewed the patient's medical records. - Marek Inquiry Pt receiving controlled substance: No Vital Signs: 09/11/21 21:08 09/11/21 21:30 09/11/21 21:55 Temperature 97.8 F Temperature Source Oral Pulse Rate 67 62 Pulse Rate [Right Brachial] 67 Respiratory Rate 18 16 Blood Pressure 112/67 117/64 Blood Pressure [Right Arm] 126/67 Blood Pressure Mean [Right Arm] 86 Blood Pressure Source Automatic Cuff Automatic Cuff Blood Pressure Source [Right Arm] Automatic Cuff Blood Pressure Position Sitting Sitting Blood Pressure Position [Right Arm] Sitting 02 Sat by Pulse Oximetry 100 98 98 Oxygen Delivery Method Room Air Room Air Room Air - Lab Data Lab results reviewed: Yes: I reviewed the patient's lab results. Lab Results 09/11/21 21:18: WBC 3.9 L, RBC 4.96, Hgb 15.4, Hct 46.7, MCV 94.2 H, MCH 31.2, MCHC 33.1, RDW 13.1, Plt Count 159, MPV 8.1, Neut % (Auto) 71.0, Lymph % (Auto) 21.8, [place] % (Auto) 5.3, Eos % (Auto) 0.5, Baso % (Auto) 1.4, Neut # (Auto) 2.8, Lymph # (Auto) 0.9, [place] # (Auto) 0.2, Eos # (Auto) 0.0, Baso # (Auto) 0.1, ESR 28 H 09/11/21 21:18: Sodium 137, Potassium 2.9 L*, Chloride 99, Carbon Dioxide 26, Anion Gap 14.9, BUN 16, Creatinine 1.40 H, Estimated Creat Clear 92, Estimated GFR 52 L, Est GFR ( Amer) 63, Glucose 147 H, Calcium 8.8, Total Bilirubin 0.6, AST 62 H, ALT 50, Alkaline Phosphatase 166 H, Troponin I 0.02, C-Reactive Protein 29.3 H, Total Protein 7.2, Albumin 4.0, Globulin 3.2, Albumin/Globulin Ratio 1.3, Procalcitonin 0.191 09/11/21 21:18: Lactate 2.7 H 09/11/21 21:18: Plasma/Serum Alcohol 10 09/11/21 21:18: Magnesium 1.6, Total Creatine Kinase 72 09/11/21 21:58: SARS-CoV-2 (PCR) Detected A, Influenza A Untype (PCR) Not detected, Influenza Type B (PCR) Not detected 09/11/21 23:42: Urine Color Dk yellow, Urine Appearance Sl cloudy, Urine pH 6.0, Ur Specific [place] >= 1.030, Urine Protein Trace, Urine Glucose (UA) Negative, Urine Ketones Trace, Urine Blood Negative, Urine Nitrate Negative, Urine Bilirubin Negative, Urine Urobilinogen 0.2, Ur Leukocyte Esterase Negative, Urine WBC 3-5, Ur Squamous Epith Cells 3-5, Urine Bacteria 3+, Hyaline Casts 5-10, Urine Mucus 3+ 09/11/21 23:42: Urine Opiates Screen Negative, Urine Methadone Screen Negative, Ur Barbituates Screen Negative, Ur Phencyclidine Scrn Negative, Ur Amphetamines Screen Negative, U Benzodiazepines Scrn Negative, Urine Cocaine Screen Negative, U Marijuana (THC) Screen Negative Result diagrams: 09/11/21 21:18 09/11/21 21:18 Orders (Tests/Meds): ED MEDICATIONS Generic Name Dose Route Start Last Admin Trade Name Freq PRN Reason Stop Dose Admin Sodium Chloride 1,000 mls @ 999 mls/hr 09/11/21 22:00 09/11/21 22:20 Sod Chlor 0.9% 1000ml Bag IV 09/11/21 23:00 999 mls/hr .[id number] NORA Administration Discontinued Medications Generic Name Dose Route Start Last Admin Trade Name Freq PRN Reason Stop Dose Admin Potassium Chloride 40 meq 09/11/21 21:48 09/11/21 21:50 Potassium Chloride 20meq Tab PO 09/11/21 21:49 40 meq ONCE ONE Administration ORDERS Catego
[2021-09-12 00:59] VITALS: BP 115/61; PULSE 64; RESP 16; TEMP 36.9; O2SAT 96
== END 2021-09-12 01:07 | disposition home or self-care (01) ==
PROVIDERS: Emergency Provider Emergency Medicine
DX: R56.9 Unspecified convulsions (principal); U07.1 COVID-19; E78.5 Hyperlipidemia, unspecified; I10 Essential (primary) hypertension; F41.9 Anxiety disorder, unspecified
CPT/HCPCS: 70450; 71045; 80053; 80305; 81001; 82550; 83605; 83735; 84145; 84484; 85025; 85651; 86140; 87040; 87086; 93005; 96365; 99284; C9803; U0003; U0005

== ENCOUNTER → 2022-10-18 10:09 | Outpatient (CLI) | payer OTHER, SELFPAY ==
[2022-10-18 10:51] LABS: Basophils # 0.1 K/mm3 (0-0.2); Basophils % 0.7 % (0.1-2.0); Eosinophils # 0.1 K/mm3 (0.0-0.4); Eosinophils % 1.5 % (0.1-12.0); Hematocrit 47.8 % (42.0-52.0); Hemoglobin 15.8 g/dL (14.1-18.0); Lymphocytes # 1.7 K/mm3 (0.7-4.5); Lymphocytes % 22.4 % (10-50); Mean Corpuscular Hemoglobin 30.8 pg (27.0-31.2); Mean Corpuscular Volume 93.2 fl (80-94); Mean Platelet Volume 7.3 fl (7.4-10.4); Monocytes # 0.4 K/mm3 (0.1-1.0); Monocytes % 4.8 % (1.7-9.3); Neutrophils # 5.4 K/mm3 (1.8-7.8); Neutrophils % 70.6 % (37.0-80.0); Platelet Count 335 K/mm3 (142-424); Red Blood Count 5.13 M/mm3 (4.60-6.20); Red Cell Distribution Width 12.8 % (11.5-17.5); White Blood Count 7.7 K/mm3 (4.8-10.8)
[2022-10-18 11:09] LABS: Chloride 98 mmol/L (98-107); Sodium 141 mmol/L (136-145)
[2022-10-18 11:12] LABS: Alanine Aminotransferase 83 U/L (12-78); Albumin Level 4.1 g/dl (3.5-5.0); Albumin/Globulin Ratio 1.3 (1.1-1.8); Alkaline Phosphatase 185 U/L (38-126); Anion Gap 13.9 mEq/L (5-15); Aspartate Amino Transferase 43 U/L (17-59); Bilirubin,Total 0.5 mg/dl (0.2-1.3); Blood Urea Nitrogen 22 mg/dl (9-20); Carbon Dioxide 32 mmol/L (22.0-30.0); Cholesterol 191 mg/dl (140-200); Estimated Glomerular Filt Rate 62 ml/min (>60); GFR (African American) 75 ML/MIN (>60); Globulin 3.1 g/dL (1.3-3.2); Total Protein,Serum 7.2 g/dl (6.3-8.2); Triglycerides 154 mg/dl (30-150); VLDL Cholesterol 31 mg/dL (0-40)
[2022-10-18 11:13] LABS: Calcium 9.5 mg/dl (8.4-10.2); Chol/HDL Ratio 4.3 (1-3.5); Glucose 123 mg/dl (74-100); HDL Cholesterol 44 mg/dl (40-60)
[2022-10-18 11:21] LABS: Potassium 2.9 mmoL/L (3.5-5.1)
[2022-10-18 11:24] LABS: Direct LDL Cholesterol 93.58 mg/dL (100-129)
== END ==
PROVIDERS: PCP Internal Medicine Adolescent Medicine; Visit Provider Internal Medicine Adolescent Medicine
DX: I10 Essential (primary) hypertension (principal); E78.5 Hyperlipidemia, unspecified; D12.6 Benign neoplasm of colon, unspecified
CPT/HCPCS: 36415; 80053; 80061; 85025

== ENCOUNTER 2022-12-23 08:34 | Day surgery (SDC) | payer OTHER, SELFPAY ==
[2022-12-22 11:28] VITALS: BMI 36.1
[2022-12-23 08:47] VITALS: BP 175/71; PULSE 72; RESP 18; TEMP 36.6; O2SAT 95
[2022-12-23 10:03] VITALS: O2SAT 95
--- NOTE | 2022-12-23 10:25 | EXP.ANES.CKL ---
[facility] Disclaimer: The information contained in this section may have been updated after the patient was seen, as this information can be updated by other users. Medical History Anxiety and depression HTN (hypertension) Surgical History History of cholecystectomy History of hernia repair History of tonsillectomy Family History Other Family history of cancer Social History Smoking Status: Never smoker alcohol intake: never substance use type: denies use current occupational status: employed Travel in the last 8 weeks: None household members: spouse housing: house current occupation: [employer] current occupational exposures/hazards: No caffeine: Yes [facility] Anesthesia Checklist Patient Identification Patient Identification: Arm Band Structural Data Admitted From: Home Planned Operative Procedure/s: colonoscopy Consent for Planned Operative Procedure(s) Verified: Yes Verified Documents: Surgical Consent and History and Physical NPO Status Verified Time NPO: 00:00 Additional verifications Anesthesia Reactions: No Hx Blood Transfusions: No Blood Transfusion Reaction: No Airway Assessment C-Spine Mobility Assessed: Yes TMJ Mobility Assessed: Yes Dentition: Good Dentition Neurological Assessment Level of Consciousness: Awake and Alert Anesthesia Plan Anesthesia Risk discussed: Yes Anesthesia Plan: Verified ASA Class: II Anesthesia Type: MAC
--- NOTE | 2022-12-23 10:39 | HMH.SCOPE ---
Procedure: Date: 12/23/22 Patient Date of :: 1960 Procedure Performed:: Colonoscopy with polypectomy using hot snare and biopsy Indications:: Patient is a 62-year-old male whom I had previously seen for gallbladder at which time he had choledocholithiasis and required inpatient ERCP with Dr. Benitez. A few weeks later he underwent laparoscopic cholecystectomy. He did have a colonoscopy previously with Dr. Benitez for screening purposes in December. He had a diminutive cecal polyp and follow-up colonoscopy was recommended in 5 years. Performing Provider:: Enrique He MD Referring Provider:: Rhys Mireles Sedation:: MAC sedation Procedure:: Patient history was obtained and appropriate physical examination was performed. Patient's medications and allergies were reviewed. Informed consent was obtained after explaining the benefits, alternatives, and risks of the procedure including, but not limited to, bleeding, perforation, missed lesions, and adverse reaction to anesthesia medications. Patient was transported to endoscopy procedure room. Patient was connected to monitoring devices. Throughout the procedure the patient's blood pressure, pulse, and oxygen saturations were monitored continuously. Patient identification and planned procedure were verified by the staff. Patient was positioned in lateral decubitus position. Digital anorectal exam was performed. Variable stiffness Olympus colonoscope was inserted and advanced under direct visualization to the cecum. Adequacy of the colonic preparation was noted. The colonoscope was advanced a short distance into the terminal ileum. The colonoscope was then slowly withdrawn while carefully examining the color, texture, anatomy, and integrity of the mucosoa circumferentially. Within the rectum retroflexion was performed. Colonoscope was then withdrawn. Findings:: He has some minimal scattered pandiverticulosis. There was a moderate 10 to 12 mm adenomatous polyp in the cecum removed with hot snare and retrieved after maceration through the colonoscope. There was a tiny adjacent diminutive adenomatous polyp removed with biopsy forceps. Impression: Cecal polyp x2 (12 mm and less than 2 mm) Rare pandiverticulosis Recommendations:: Likely repeat colonoscopy 3 years given the size of the polyp Complications:: None Estimated blood obtained (mL): 1
[2022-12-23 10:40] VITALS: BP 144/59; PULSE 63; RESP 14; TEMP 36.4; O2SAT 98
[2022-12-23 10:50] VITALS: BP 101/63; PULSE 59; RESP 15; O2SAT 97
[2022-12-23 11:00] VITALS: BP 119/68; PULSE 54; RESP 16; O2SAT 97
[2022-12-23 11:10] VITALS: BP 127/51; PULSE 56; RESP 17; O2SAT 98
== END 2022-12-23 11:12 | disposition home or self-care (01) ==
PROVIDERS: PCP Internal Medicine Adolescent Medicine; Visit Provider Surgery
PROC: 0DJD8ZZ Inspection of Lower Intestinal Tract, Via Natural or Artificial Opening Endoscopic (ICD-10-PCS; CPT 45385; principal; 2022-12-23 09:30)
DX: Z12.11 Encounter for screening for malignant neoplasm of colon (principal); D12.0 Benign neoplasm of cecum; Z86.010 Personal history of colon polyps; Z79.899 Other long term (current) drug therapy; Z90.49 Acquired absence of other specified parts of digestive tract
CPT/HCPCS: 45385; 45380; 88305

== ENCOUNTER 2024-12-31 10:23 | Emergency (ER) | payer OTHER, SELFPAY ==
[2024-12-31] VITALS (8 sets, daily range): BP systolic 108–127; BP diastolic 50–71; PULSE 48–60; RESP 12–18; TEMP 36.7–37; O2SAT 93–100; BMI 39.9
--- NOTE | 2024-12-31 10:25 | ECG_ITS ---
APPROVED REPORT Exam: Resting ECG HR:56 bpm ECG Measurements Heart Rate 56 AXES PA 181 P 49 QRSd 110 QRS 40 QT 440 T 0 QTc 432 Conclusion SINUS BRADYCARDIA INCOMPLETE RIGHT BUNDLE BRANCH BLOCK [90+ ms QRS DURATION, TERMINAL R IN V1/V2, 40+ ms S IN I/aVL/V4/V5/V6] BORDERLINE ECG No STEMI Electronically signed by : REYNALDO WETZEL, 01/01/2025 06:32:54
[2024-12-31 10:36] LABS: Lactate Venous 1.9 mmol/L (0.4-2.0); VBG Base Excess 7.8 mmol/L (-2.4-2.3); VBG HCO3 31.8 mmol/L (23-30); VBG Oxygen Saturation 75.8 % (50-70); VBG PCO2 47.4 mmol/L (35-51); VBG PH 7.45 mmol/L (7.31-7.41); VBG PO2 37.3 mmol/L (28-40); VBG Total CO2 33.3 mmol/L (23-27)
--- NOTE | 2024-12-31 10:48 | XR_ITS ---
FINAL REPORT TECHNIQUE: Single view chest CLINICAL HISTORY: Syncope COMPARISON: 09/12/2021 FINDINGS: A single view of the chest was obtained. The heart and mediastinum are within normal limits. There is mild scarring at the right lung base. The lungs are otherwise clear. There is no pneumothorax. IMPRESSION: No acute cardiopulmonary process. Reviewed, Interpreted and Dictated by Ludin Amor MD Transcribed by Rosamaria Whitman Authenticated and [facility]
[2024-12-31] MEDS: ONDANSETRON 4MG/2ML VIAL 4 MG IV (10:49)
[2024-12-31 10:53] LABS: Basophils # 0.1 K/mm3 (0-0.2); Basophils % 0.6 % (0.1-2.0); Eosinophils # 0.1 K/mm3 (0.0-0.4); Eosinophils % 1.2 % (0.1-12.0); Hematocrit 40.6 % (42.0-52.0); Hemoglobin 13.9 g/dL (14.1-18.0); Lymphocytes # 1.2 K/mm3 (0.7-4.5); Lymphocytes % 11.5 % (10-50); Mean Corpuscular HGB Conc 34.2 g/dL (31.8-35.4); Mean Corpuscular Hemoglobin 30.6 pg (27.0-31.2); Mean Corpuscular Volume 89.4 fl (80-94); Mean Platelet Volume 9.1 fl (7.4-10.4); Monocytes # 0.8 K/mm3 (0.1-1.0); Neutrophils % 78.4 % (37.0-80.0); Platelet Count 225 K/mm3 (142-424); Red Blood Count 4.54 M/mm3 (4.60-6.20); Red Cell Distribution Width 12.5 % (11.5-17.5); White Blood Count 10.2 K/mm3 (4.8-10.8)
[2024-12-31 10:55] LABS: Albumin Level 3.9 g/dl (3.5-5.0); Chloride 100 mmol/L (98-107); Sodium 139 mmol/L (136-145)
[2024-12-31 10:58] LABS: Alanine Aminotransferase 97 U/L (12-78); Albumin/Globulin Ratio 1.3 (1.1-1.8); Alkaline Phosphatase 89 U/L (38-126); Aspartate Amino Transferase 106 U/L (17-59); Bilirubin,Total 1.7 mg/dl (0.2-1.3); Blood Urea Nitrogen 15 mg/dl (9-20); Calcium 8.9 mg/dl (8.4-10.2); Carbon Dioxide 32 mmol/L (22.0-30.0); Creatinine Clearance Estimated 121 mL/min (50-200); Estimated Glomerular Filt Rate 68 ml/min (>60); GFR (African American) 82 ML/MIN (>60); Glucose 135 mg/dl (74-100); Magnesium 1.8 mg/dl (1.6-2.3); Total Protein,Serum 6.9 g/dl (6.3-8.2)
--- NOTE | 2024-12-31 11:02 | HMH.EDGENADL ---
Discharge Plan Disposition Patient Disposition: Home, Self-Care Condition: Good Prescriptions Prescriptions: No Action citalopram 20 MG tablet 20 mg PO DAILY carvedilol 12.5 mg tablet 12.5 mg PO DAILY indapamide 1.25 mg tablet 1.25 mg PO DAILY omeprazole 20 mg capsule,delayed release(DR/EC) 20 mg PO DAILY Referrals Follow up/Referrals: Rhys Mireles MD [Primary Care Provider] - See instructions Activity Restrictions/Add. Instructions Additional Instructions/Restrictions: Follow-up with your primary care physician as needed. If you develop any new or worsening symptoms, such as recurrent episodes of passing out, worsening chest pain, shortness of breath, or if you become concerned for your health for any reason, return to the emergency department for evaluation Clinical Impressions Clinical Impression: Syncope Instructions Patient Instructions: DI for Syncope in Adults (Fainting), DI for Syncope in Children (Fainting) Print Language Print Language: Setswana Discharge ED Provider: Danny Elliott Adult HPI General Chief complaint: Syncope Stated complaint: syncopal episode Time Seen by Provider: 12/31/24 10:33 Mode of Arrival: Ambulatory Source of Information: Patient Limitations: No Limitations Description of Symptoms (Recalled from ER Triage Doc. by RN): pt presents to ED from postop area. pt was here with S/O for colonoscopy. pt began to get hot and sweaty, felt dizzy. per postop staff report pt passed out and has seizure like activity. pt arrives to ED on stretcher from postop. pt alert and oriented. no pain voiced from pt. pt does endorse nausea. History of Present Illness HPI narrative: Rashawn Gross is a 64M with a past medical history of hypertension and GERD who presents to the emergency department after a syncopal episode. Patient states that he was up on the first floor when he was hearing details about his 's colonoscopy and became lightheaded. He then attempted to walk to the bathroom and reportedly passed out. He was caught before he hit the ground and transferred furred to a wheelchair. No head trauma was sustained. Patient reportedly was unresponsive for 1 to 2 minutes and had an episode of vomiting. He quickly regained consciousness. A rapid response was called and at the time my arrival, patient was alert and oriented and in no distress. Patient reports that similar episodes have happened when he has had blood drawn in the past. 2 to 3 years ago he passed out similar to this and they thought he may have been having a seizure but was determined that he did not have a seizure. Related Data Home Medications ?Medication ?Instructions ?Recorded ?Confirmed citalopram 20 mg tablet 20 mg PO DAILY Depression 08/02/18 12/31/24 carvedilol 12.5 mg tablet 12.5 mg PO DAILY bp 12/22/22 12/31/24 indapamide 1.25 mg tablet 1.25 mg PO DAILY Fluid 12/22/22 12/31/24 omeprazole 20 mg capsule,delayed 20 mg PO DAILY 12/31/24 12/31/24 release Allergies Allergy/AdvReac Type Severity Reaction Status Date / Time No Known Allergies Allergy Verified 09/23/19 09:15 [facility] Disclaimer: The information contained in this section may have been updated after the patient was seen, as this information can be updated by other users. Medical History (Updated 12/31/24 @ 12:20 by Danny Elliott MD) Anxiety and depression HTN (hypertension) Surgical History History of tonsillectomy History of cholecystectomy History of hernia repair Family History Other Family history of cancer Social History (Updated 12/23/22 @ 10:26 by Eleuterio iDor CRNA) Smoking Status: Never smoker alcohol intake: never substance use type: denies use current occupational status: employed Travel in the last 8 weeks: None household members: spouse housing: house current occupation: superintend. [employer] current occupational exposures/hazards: No caffeine: Yes Have you lived/traveled outside [place] in past 30 days?: No Contact w/someone who lives/traveled outside US past 30 days?: No Exposure to someone with infectious disease in past 14 days?: No Do you have a fever (greater than 100.4 F or 38 C)?: No Have you tested positive for COVID-19: No Exposed to someone with COVID-19 in past 14 days?: No Do you have a sore throat?: No Do you have a cough?: No Do you have any weakness?: No Do you have any diarrhea?: No Are you experiencing any unusual bleeding?: No Do you have any muscle aches/pain?: No Do you have any abdominal pain?: No Are you experiencing loss of taste or smell?: No Other Medical History Have you received the Flu Vaccine for this season: No Have you received the Pneumonia Vaccine: No ROS Obtained: Yes Systems reviewed as appropriate & no additional complaints except as documented Physical Exam General General appearance: alert and in no apparent distress Comment: Ill but non-toxic appearing Head Head exam: atraumatic Eye Eye exam: Present normal appearance ENT ENT exam: Present normal external ear exam Neck Neck exam: Present full ROM Chest Chest inspection: Present symmetric chest wall rise Respiratory Respiratory exam: Present normal lung sounds bilaterally; Absent respiratory distress Cardiovascular Cardiovascular exam: Present regular rate and normal rhythm Abdominal Exam Abdominal exam: Present soft; Absent tenderness or guarding exam: Present deferred Extremities Exam Extremities exam: Present normal inspection Back Exam Back exam: Present normal inspection Neurological Exam Neurological exam: Present alert and oriented X3 Psychiatric Psychiatric exam: Present normal affect Skin Skin exam: Present warm and dry Medical Decision Making Medical Records Screening: Per USPSTF and CDC recommendations, given the prevalence of disease in our region, it is our hospital?s policy to screen for HIV and viral Hepatitis for all patients aged 18 and over and those with ongoing risk factors. Marek Inquiry Pt receiving controlled substance: No Vital Signs: 12/31/24 10:28 12/31/24 10:30 12/31/24 10:32 Temperature 98.6 F Temperature Source Oral Pulse Rate 54 L 53 L Pulse Rate [Left Radial] 57 L Respiratory Rate 18 15 13 Blood Pressure 122/60 108/50 L Blood Pressure [Right Arm] 122/60 Blood Pressure Mean [Right Arm] 80 02 Sat by Pulse Oximetry 98 98 100 Oxygen Delivery Method Room Air Room Air Room Air 12/31/24 10:57 12/31/24 11:00 12/31/24 11:30 Temperature Temperature Source Pulse Rate 52 L 50 L 54 L Pulse Rate [Left Radial] Respiratory Rate 14 12 12 Blood Pressure 113/55 L 123/66 127/71 Blood Pressure [Right Arm] Blood Pressure Mean [Right Arm] 02 Sat by Pulse Oximetry 95 96 96 Oxygen Delivery Method Room Air Room Air Room Air 12/31/24 12:00 Temperature Temperature Source Pulse Rate 48 L Pulse Rate [Left Radial] Respiratory Rate 14 Blood Pressure 114/61 Blood Pressure [Right Arm] Blood Pressure Mean [Right Arm] 02 Sat by Pulse Oximetry 93 L Oxygen Delivery Method Room Air Lab Data Lab Results 12/31/24 10:29: WBC 10.2, RBC 4.54 L, Hgb 13.9 L, Hct 40.6 L, MCV 89.4, MCH 30.6, MCHC 34.2, RDW 12.5, Plt Count 225, MPV 9.1, Neut % (Auto) 78.4, Lymph % (Auto) 11.5, [place] % (Auto) 8.0, Eos % (Auto) 1.2, Baso % (Auto) 0.6, Neut # (Auto) 8.0 H, Lymph # (Auto) 1.2, [place] # (Auto) 0.8, Eos # (Auto) 0.1, Baso # (Auto) 0.1, Sodium 139, Potassium 3.0 L, Chloride 100, Carbon Dioxide 32 H, Anion Gap 10.0, BUN 15, Creatinine 1.10, Estimated Creat Clear 121, Estimated GFR 68, Est GFR ( Amer) 82, Glucose 135 H, Calcium 8.9, Magnesium 1.8, Total Bilirubin 1.7 H, AST 106 H, ALT 97 H, Alkaline Phosphatase 89, Troponin I < 0.01, NT-Pro-B Natriuret Pep 340 H, Total Protein 6.9, Albumin 3.9, Globulin 3.0, Albumin/Globulin Ratio 1.3, TSH 3.18, HCV Ab NICOLE w/Rflx PCR Qn Negative, HIV Ag/Ab Combo Qual Negative 12/31/24 10:30: VBG pH 7.45 H, VBG pCO2 47.4, VBG pO2 37.3, VBG HCO3 31.8 H, VBG Total CO2 33.3 H, VBG O2 Saturation 75.8 H, VBG Base Excess 7.8 H, VBG Lactic Acid 1.9 12/31/24 10:29 12/31/24 10:29 Orders (Tests/Meds): ED MEDICATIONS Discontinued Medications Generic Name Dose Route Start Last Admin Trade Name Freq PRN Reason Stop Dose Admin Ondansetron HCl 4 mg 12/31/24 10:49 12/31/24 10:49 Ondansetron 4mg/2ml Vial IV 12/31/24 10:50 4 mg ONCE ONE Administration Ondansetron HCl 4 mg 12/31/24 10:48 12/31/24 10:57 Ondansetron 4mg/2ml Vial IV 12/31/24 10:49 Not Given ONCE ONE Potassium Chloride 40 meq 12/31/24 11:02 12/31/24 11:06 Potassium Chloride 20meq Tab PO 12/31/24 11:03 40 meq ONCE ONE Administration ORDERS Category Date Time Status CXR --portable [XR chest portable] Stat Exams 12/31/24 10:48 Completed BNP [NT Pro Brain Natriuretic Pep.] Stat Lab 12/31/24 10:29 Completed CBC w/Auto Diff [Complete Blood Count Auto Diff] Stat Lab 12/31/24 10:29 Completed CMP [Comprehensive Metabolic Panel] Stat Lab 12/31/24 10:29 Completed HIV Combo Stat Lab 12/31/24 10:29 Completed Hepatitis C Ab Qual. W/ RFX Stat Lab 12/31/24 10:29 Completed Magnesium Stat Lab 12/31/24 10:29 Completed TSH [Thyroid Stimulating Hormone] Stat Lab 12/31/24 10:29 Completed Troponin I Q3H Lab 12/31/24 14:00 Ordered Troponin I Q3H Lab 12/31/24 17:00 Ordered Troponin I Stat Lab 12/31/24 10:29 Completed Venous Blood Gas Routine RT 12/31/24 10:30 Completed Medical Decision Narrative: Rashawn Gross is a 64M with a past medical history of hypertension and GERD who presents to the emergency department after a syncopal episode. Patient states that he was up on the first floor when he was hearing details about his 's colonoscopy and became lightheaded. He then attempted to walk to the bathroom and reportedly passed out. He was caught before he hit the ground and transferred furred to a wheelchair. No head trauma was sustained. Patient reportedly was unresponsive for 1 to 2 minutes and had an episode of vomiting. He quickly regained consciousness. A rapid response was called and at the time my arrival, patient was alert and oriented and in no distress. Patient reports that similar episodes have happened when he has had blood drawn in the past. 2 to 3 years ago he passed out similar to this and they thought he may have been having a seizure but was determined that he did not have a seizure. On arrival, patient is normotensive, mildly bradycardic with a heart rate in the upper 50s, afebrile, breathing comfortably on room air with appropriate oxygen saturation. Physical exam, stated above, revealed an overall well-appearing male in no distress. He is alert and oriented and answering questions appropriately. He is in no acute distress. Cardiopulmonary exams unremarkable. Abdomen is nontender nondistended. He denies any headache or vision changes. Differential diagnosis includes, but is not limited to: Cardiac arrhythmia, hypoglycemia, anemia, electrolyte derangement, ACS, vasovagal syncope, orthostatic syncope, hypothyroidism, among others. Workup in the emergency department included: CBC, CMP, troponin, BNP, TSH, magnesium level, VBG, EKG, chest x-ray. Considerations were given to obtaining CT head without contrast, however the patient is not having any vision changes or headache and did not strike his head. The risk of radiation exposure outweighs potential benefits at this time. Chest x-ray interpreted by me personally. No focal consolidation, no pneumothorax, no widening of the mediastinum. See radiology report for details TSH within normal limits, mildly elevated BNP of 340 but not significantly elevated, troponin less than 0.01, bilirubin mildly elevated at 1.7 and AST mildly elevated at 106 and ALT mildly elevated 97 (this appears to be more chronic in nature as he has had elevation in all these in the past), magnesium normal at 1.8, potassium low at 3.0 and was replaced with oral potassium chloride 40 mEq. VBG with pH of 7.45, pCO2 within normal range and mildly elevated HCO3 of 31.8, no significant anemia, no leukocytosis. patient has remained hemodynamically stable throughout his entire ED visit his workup today has not revealed any acute pathology. Patient did state that he has had lightheadedness and episodes like this similar in the past with blood draws and is most consistent with a vasovagal syncopal episode. Will have him follow-up with his primary care physician no additional workup is indicated at this time. Return precautions were given. All questions were answered. He demonstrated understanding and was agreement with this plan. He was then discharged from the emergency department in stable condition Critical Care Critical Care Time Critical Care Time: No
[2024-12-31] MEDS: POTASSIUM CHLORIDE 20MEQ TAB 40 MEQ PO (11:06)
[2024-12-31 11:08] LABS: NT Pro Brain Natriuretic Pep. 340 pg/mL (0-125)
[2024-12-31 11:18] LABS: Troponin I < 0.01 ng/ml (0.00-0.034)
[2024-12-31 11:29] LABS: Thyroid Stimulating Hormone 3.18 uIU/mL (0.465-4.68)
[2024-12-31 11:48] LABS: HIV Combo NEGATIVE (Negative)
[2024-12-31 11:56] LABS: Hepatitis C Ab Qual. W/ RFX NEGATIVE (Negative)
== END 2024-12-31 12:30 | disposition home or self-care (01) ==
PROVIDERS: Emergency Provider Student in an Organized Health Care Education/Training Program; PCP Internal Medicine Adolescent Medicine
DX: R55 Syncope and collapse (principal); R11.0 Nausea; R42 Dizziness and giddiness
CPT/HCPCS: 71045; 80053; 82803; 83735; 83880; 84443; 84484; 85025; 86803; 87389; 93005; 96374; 99284; J2405